=== PATIENT | female | born 1950 | race African-American/Black ===

== ENCOUNTER 2017-04-20 12:17 | Inpatient (IN) ==
[2017-04-20] MEDS ORDERED: cefTRIAXone 1,000 MG in SODIUM CHLORIDE 0.9% 100 ML IV STA (13:19)
[2017-04-20] MEDS ORDERED: NITROGLYCERIN 2% OINT 1 INCH/GM PACK TOP STA (13:19)
[2017-04-20] MEDS ORDERED: ONDANSETRON 4 MG/2 ML VIAL IV STA (13:19)
[2017-04-20] MEDS ORDERED: FUROSEMIDE 100 MG/10 ML VIAL IV STA (13:19)
[2017-04-20] MEDS ORDERED: MORPHINE 2 MG/1 ML SYRINGE IV STA (13:19)
[2017-04-20] MEDS ORDERED: LEVALBUTEROL 1.25 MG/3 ML NEB RESP TX STA (13:19)
[2017-04-20] MEDS ORDERED: ALBUTEROL 2.5 MG/3 ML NEB RESP TX SCH (13:30)
[2017-04-20] MEDS ORDERED: MORPHINE 2 MG/1 ML SYRINGE ONE (13:36)
[2017-04-20] MEDS ORDERED: NITROGLYCERIN 2% OINT 1 INCH/GM PACK TOP ONE (13:36)
[2017-04-20] MEDS ORDERED: FUROSEMIDE 40 MG/4 ML VIAL ONE (13:36)
[2017-04-20] MEDS ORDERED: ONDANSETRON 4 MG/2 ML VIAL ONE (13:36)
[2017-04-20] MEDS ORDERED: ALBUTEROL 2.5 MG/3 ML NEB RESP TX ONE (13:42)
[2017-04-20 13:53] LABS: Basophils % 0.3 % (0.0-0.8); Eosinophils # 0.1 10*3/uL (0.0-0.87); Eosinophils % 0.5 % (0.00-10.9); Hematocrit 43.3 VOL% (35.7-47.0); Hemoglobin 14.6 GM/DL (12.0-16.0); Immature Granulocytes % 0.4 %; Immature Granulocytes Absolute 0.05 #; Lymphocytes # 1.1 10*3/uL (1.4-4.0); Lymphocytes % 8.7 % (21.3-54.2); Mean Corpuscular HGB Conc 33.7 GM/DL (32-36); Mean Corpuscular Hemoglobin 33 PG (27-34); Mean Corpuscular Volume 97.5 FL (87-102); Mean Platelet Volume 10.4 FL (9.6-12.0); Monocytes # 0.6 10*3/uL (0.11-0.8); Monocytes % 4.5 % (1.7-12.7); Neutrophils # 10.7 10*3/uL (1.4-7.4); Neutrophils % 85.6 % (38.7-73.9); Platelet Count 199 T/CUMM (130-400); Red Blood Count 4.44 MC/CUMM (3.8-5.5); Red Cell Distribution Width 13.4 % (9.3-17.3); White Blood Count 12.5 T/CUMM (4-12)
[2017-04-20 14:01] LABS: INR 1.4; PT Patient Result 14.2 SECS
[2017-04-20] MEDS ORDERED: cefTRIAXone 1,000 MG VIAL ONE (14:16)
[2017-04-20 14:46] LABS: Albumin 3.8 G/DL (3.4-5.0); Bilirubin,Total 0.5 MG/DL (0.2-1.0); Calcium 9.4 MG/DL (8.5-10.1); Osmolality,Calculated 277.7 MOS/KG (273-304); Potassium 3.7 MMOL/L (3.5-5.1); Total Protein 7.8 G/DL (6.4-8.3)
[2017-04-20 14:49] LABS: Troponin I Only 0.085 NG/ML (0.00-0.045)
[2017-04-20 15:03] LABS: Apearance,Urine CLEAR (Clear); Bacteria,Urine Occasional /HPF (Few); Bilirubin,Urine Negative (Negative); Blood, Urine Negative (Negative); Glucose,Urine (UA) Negative (Negative); Ketones,Urine 5 mg/dL (Negative); Mucus,Urine Occasional /LPF (Occasional); Nitrite,Urine Negative (Negative); Protein,Urine 100 MG/DL; RBC,Urine 1 /HPF (0-4); Urine Color Yellow (Yellow); Urine Specific Gravity 1.015 (1.001-1.035); Urine Urobilinogen < 2.0 EU/DL (0.2-1.0); WBC,Urine 1 /HPF (0-6)
[2017-04-20] MEDS ORDERED: ONDANSETRON 4 MG/2 ML VIAL IV PRN (15:26)
[2017-04-20] MEDS ORDERED: MORPHINE 2 MG/1 ML SYRINGE IV PRN (15:26)
[2017-04-20] MEDS ORDERED: LEVALBUTEROL 1.25 MG/3 ML NEB RESP TX PRN (15:33)
[2017-04-20] MEDS ORDERED: ALBUTEROL 2.5 MG/3 ML NEB RESP TX PRN (15:47)
[2017-04-20] MEDS: ENOXAPARIN 40 MG/0.4 ML SYRINGE SUBCUT SCH (18:27)
[2017-04-20] MEDS: AZITHROMYCIN INJ 500 MG in SODIUM CHLORIDE 0.9% 250 ML IV SCH (18:29)
[2017-04-20] MEDS ORDERED: ALBUTEROL/IPRATROPIUM 3 ML NEB RESP TX SCH (19:00)
[2017-04-20] MEDS ORDERED: IPRATROPIUM 500 MCG/2.5 ML NEB RESP TX PRN (19:33)
[2017-04-20] MEDS: MONTELUKAST 10 MG TABLET PO SCH (20:43)
[2017-04-20] MEDS: BUDESONIDE/FORMOTEROL 160-4.5 INHALER 6 GM INH SCH (20:43)
[2017-04-21] MEDS: IPRATROPIUM 500 MCG/2.5 ML NEB RESP TX SCH ×4 (02:47→19:06)
[2017-04-21] MEDS: guaiFENesin/DM ER 600-30 MG TABLET PO PRN ×2 (04:56→21:08)
[2017-04-21 05:59] LABS: Basophils % 0.3 % (0.0-0.8); Eosinophils # 0.1 10*3/uL (0.0-0.87); Eosinophils % 0.5 % (0.00-10.9); Hemoglobin 13.7 GM/DL (12.0-16.0); Immature Granulocytes % 0.5 %; Immature Granulocytes Absolute 0.06 #; Lymphocytes # 1.4 10*3/uL (1.4-4.0); Lymphocytes % 10.5 % (21.3-54.2); Mean Corpuscular HGB Conc 33.4 GM/DL (32-36); Mean Corpuscular Hemoglobin 32 PG (27-34); Mean Corpuscular Volume 96.5 FL (87-102); Mean Platelet Volume 10.1 FL (9.6-12.0); Monocytes # 0.8 10*3/uL (0.11-0.8); Neutrophils # 10.5 10*3/uL (1.4-7.4); Neutrophils % 82.2 % (38.7-73.9); Platelet Count 205 T/CUMM (130-400); Red Blood Count 4.25 MC/CUMM (3.8-5.5); Red Cell Distribution Width 13.8 % (9.3-17.3); White Blood Count 12.8 T/CUMM (4-12)
[2017-04-21 06:28] LABS: Albumin 3.6 G/DL (3.4-5.0); Bilirubin,Total 0.6 MG/DL (0.2-1.0); Calcium 9.6 MG/DL (8.5-10.1); Osmolality,Calculated 284.3 MOS/KG (273-304); Potassium 3.8 MMOL/L (3.5-5.1); Total Protein 6.7 G/DL (6.4-8.3)
[2017-04-21] MEDS ORDERED: FAMOTIDINE 20 MG TABLET PO SCH (09:00)
[2017-04-21] MEDS ORDERED: PANTOPRAZOLE 40 MG TABLET PO SCH (09:00)
[2017-04-21] MEDS: hydroCHLOROthiazide 12.5 MG CAPSULE PO SCH (09:06)
[2017-04-21] MEDS: MONTELUKAST 10 MG TABLET PO SCH ×2 (09:07→21:08)
[2017-04-21] MEDS: DILTIAZEM CD 300 MG CAPSULE PO SCH (09:07)
[2017-04-21] MEDS: cefTRIAXone 1,000 MG in SYRINGE 1 EACH IV SCH (09:07)
[2017-04-21] MEDS: BUDESONIDE/FORMOTEROL 160-4.5 INHALER 6 GM INH SCH ×2 (09:11→21:08)
[2017-04-21] MEDS ORDERED: AMINOPHYLLINE 250 MG in SODIUM CHLORIDE 0.9% 100 ML IV ONE (12:00)
[2017-04-21 12:19] LABS: PT Patient Result 10.2 SECS
[2017-04-21] MEDS ORDERED: AMINOPHYLLINE 250 MG in SODIUM CHLORIDE 0.9% 240 ML IV SCH (16:30)
[2017-04-21] MEDS: POTASSIUM CHLORIDE 10 MEQ TABLET PO SCH (17:03)
[2017-04-21] MEDS ORDERED: IPRATROPIUM 500 MCG/2.5 ML NEB RESP TX SCH (19:00)
[2017-04-21] MEDS: ENOXAPARIN 40 MG/0.4 ML SYRINGE SUBCUT SCH ×2 (21:07→21:12)
[2017-04-21] MEDS: AZITHROMYCIN INJ 500 MG in SODIUM CHLORIDE 0.9% 250 ML IV SCH (21:07)
[2017-04-21] MEDS: PANTOPRAZOLE 40 MG TABLET PO SCH (21:08)
[2017-04-22] MEDS: IPRATROPIUM 500 MCG/2.5 ML NEB RESP TX SCH ×4 (00:39→19:47)
[2017-04-22 06:34] LABS: PT Patient Result 10.5 SECS
[2017-04-22] MEDS: DILTIAZEM CD 300 MG CAPSULE PO SCH (09:18)
[2017-04-22] MEDS: PANTOPRAZOLE 40 MG TABLET PO SCH ×2 (09:19→21:59)
[2017-04-22] MEDS: POTASSIUM CHLORIDE 10 MEQ TABLET PO SCH (09:19)
[2017-04-22] MEDS: cefTRIAXone 1,000 MG in SYRINGE 1 EACH IV SCH (09:19)
[2017-04-22] MEDS: hydroCHLOROthiazide 12.5 MG CAPSULE PO SCH (09:19)
[2017-04-22] MEDS: AZITHROMYCIN 250 MG TABLET PO SCH (09:20)
[2017-04-22] MEDS: MONTELUKAST 10 MG TABLET PO SCH ×2 (09:20→21:59)
[2017-04-22] MEDS: BUDESONIDE/FORMOTEROL 160-4.5 INHALER 6 GM INH SCH ×2 (09:26→21:59)
[2017-04-22] MEDS: guaiFENesin/DM ER 600-30 MG TABLET PO PRN ×2 (09:26→21:58)
[2017-04-22] MEDS ORDERED: THEOPHYLLINE ER 200 MG TABLET PO SCH (10:00)
[2017-04-22] MEDS: THEOPHYLLINE ER (24 HR) 400 MG CAPSULE PO SCH (17:41)
[2017-04-22] MEDS: ENOXAPARIN 40 MG/0.4 ML SYRINGE SUBCUT SCH (21:58)
[2017-04-23] MEDS: IPRATROPIUM 500 MCG/2.5 ML NEB RESP TX SCH ×4 (01:13→19:23)
[2017-04-23] MEDS: POTASSIUM CHLORIDE 10 MEQ TABLET PO SCH (09:20)
[2017-04-23] MEDS: hydroCHLOROthiazide 12.5 MG CAPSULE PO SCH (09:20)
[2017-04-23] MEDS: BUDESONIDE/FORMOTEROL 160-4.5 INHALER 6 GM INH SCH ×2 (09:21→21:29)
[2017-04-23] MEDS: MONTELUKAST 10 MG TABLET PO SCH ×2 (09:21→21:29)
[2017-04-23] MEDS: PANTOPRAZOLE 40 MG TABLET PO SCH ×2 (09:21→21:29)
[2017-04-23] MEDS: guaiFENesin/DM ER 600-30 MG TABLET PO PRN ×2 (09:22→21:29)
[2017-04-23] MEDS: AZITHROMYCIN 250 MG TABLET PO SCH (09:22)
[2017-04-23] MEDS: DILTIAZEM CD 300 MG CAPSULE PO SCH (09:27)
[2017-04-23] MEDS: cefTRIAXone 1,000 MG in SYRINGE 1 EACH IV SCH (09:28)
[2017-04-23] MEDS: methylPREDNISolone SOD SUC 40 MG/1 ML VIAL IV SCH ×2 (14:43→22:35)
[2017-04-23] MEDS: LEVOFLOXACIN INJ 750 MG in PREMIX 1 EACH IV SCH (14:54)
[2017-04-23] MEDS: CEFEPIME 2,000 MG in SYRINGE 1 EACH IV SCH ×2 (16:10→22:38)
[2017-04-23] MEDS: THEOPHYLLINE ER (24 HR) 400 MG CAPSULE PO SCH (16:21)
[2017-04-23] MEDS: ENOXAPARIN 40 MG/0.4 ML SYRINGE SUBCUT SCH (21:30)
[2017-04-24] MEDS: IPRATROPIUM 500 MCG/2.5 ML NEB RESP TX SCH ×4 (00:13→20:34)
[2017-04-24] MEDS: methylPREDNISolone SOD SUC 40 MG/1 ML VIAL IV SCH ×3 (07:13→21:39)
[2017-04-24] MEDS: CEFEPIME 2,000 MG in SYRINGE 1 EACH IV SCH ×3 (07:15→21:40)
[2017-04-24] MEDS: DILTIAZEM CD 300 MG CAPSULE PO SCH (10:04)
[2017-04-24] MEDS: hydroCHLOROthiazide 12.5 MG CAPSULE PO SCH (10:05)
[2017-04-24] MEDS: PANTOPRAZOLE 40 MG TABLET PO SCH ×2 (10:05→21:46)
[2017-04-24] MEDS: POTASSIUM CHLORIDE 10 MEQ TABLET PO SCH (10:06)
[2017-04-24] MEDS: BUDESONIDE/FORMOTEROL 160-4.5 INHALER 6 GM INH SCH ×2 (10:06→21:46)
[2017-04-24] MEDS: MONTELUKAST 10 MG TABLET PO SCH ×2 (10:06→21:39)
[2017-04-24] MEDS: LEVOFLOXACIN INJ 750 MG in PREMIX 1 EACH IV SCH (15:29)
[2017-04-24] MEDS: THEOPHYLLINE ER (24 HR) 400 MG CAPSULE PO SCH (18:32)
[2017-04-24] MEDS: ENOXAPARIN 40 MG/0.4 ML SYRINGE SUBCUT SCH (21:39)
[2017-04-25] MEDS: IPRATROPIUM 500 MCG/2.5 ML NEB RESP TX SCH ×4 (01:01→20:01)
[2017-04-25] MEDS: methylPREDNISolone SOD SUC 40 MG/1 ML VIAL IV SCH ×3 (05:33→21:43)
[2017-04-25] MEDS: CEFEPIME 2,000 MG in SYRINGE 1 EACH IV SCH ×3 (05:35→21:51)
[2017-04-25] MEDS: DILTIAZEM CD 300 MG CAPSULE PO SCH (10:20)
[2017-04-25] MEDS: hydroCHLOROthiazide 12.5 MG CAPSULE PO SCH (10:22)
[2017-04-25] MEDS: POTASSIUM CHLORIDE 10 MEQ TABLET PO SCH (10:23)
[2017-04-25] MEDS: guaiFENesin/DM ER 600-30 MG TABLET PO PRN (10:23)
[2017-04-25] MEDS: MONTELUKAST 10 MG TABLET PO SCH ×2 (10:23→21:43)
[2017-04-25] MEDS: PANTOPRAZOLE 40 MG TABLET PO SCH ×2 (10:23→21:43)
[2017-04-25] MEDS: BUDESONIDE/FORMOTEROL 160-4.5 INHALER 6 GM INH SCH ×2 (10:24→21:49)
[2017-04-25] MEDS: LEVOFLOXACIN INJ 750 MG in PREMIX 1 EACH IV SCH (16:20)
[2017-04-25] MEDS: THEOPHYLLINE ER (24 HR) 400 MG CAPSULE PO SCH (18:04)
[2017-04-25] MEDS: ENOXAPARIN 40 MG/0.4 ML SYRINGE SUBCUT SCH (21:42)
[2017-04-26] MEDS: IPRATROPIUM 500 MCG/2.5 ML NEB RESP TX SCH ×4 (00:45→19:12)
[2017-04-26] MEDS: methylPREDNISolone SOD SUC 40 MG/1 ML VIAL IV SCH ×3 (05:30→23:26)
[2017-04-26] MEDS: CEFEPIME 2,000 MG in SYRINGE 1 EACH IV SCH ×3 (05:32→23:16)
[2017-04-26] MEDS ORDERED: amLODIPine 5 MG TABLET PO SCH (09:00)
[2017-04-26] MEDS: POTASSIUM CHLORIDE 10 MEQ TABLET PO SCH (09:35)
[2017-04-26] MEDS: DILTIAZEM CD 300 MG CAPSULE PO SCH (09:36)
[2017-04-26] MEDS: guaiFENesin/DM ER 600-30 MG TABLET PO PRN (09:39)
[2017-04-26] MEDS: MONTELUKAST 10 MG TABLET PO SCH ×2 (09:40→20:43)
[2017-04-26] MEDS: PANTOPRAZOLE 40 MG TABLET PO SCH ×2 (09:40→20:43)
[2017-04-26] MEDS: BUDESONIDE/FORMOTEROL 160-4.5 INHALER 6 GM INH SCH ×2 (09:41→20:43)
[2017-04-26] MEDS: amLODIPine 10 MG TABLET PO SCH (09:50)
[2017-04-26] MEDS: LEVOFLOXACIN INJ 750 MG in PREMIX 1 EACH IV SCH (15:09)
[2017-04-26] MEDS: LOSARTAN 50 MG TABLET PO SCH (18:00)
[2017-04-26] MEDS: ALLOPURINOL 100 MG TABLET PO SCH ×2 (18:01→20:43)
[2017-04-26] MEDS: THEOPHYLLINE ER (24 HR) 400 MG CAPSULE PO SCH (18:01)
[2017-04-26] MEDS: ENOXAPARIN 40 MG/0.4 ML SYRINGE SUBCUT SCH (20:43)
[2017-04-27] MEDS: IPRATROPIUM 500 MCG/2.5 ML NEB RESP TX SCH ×4 (00:25→18:52)
[2017-04-27] MEDS: methylPREDNISolone SOD SUC 40 MG/1 ML VIAL IV SCH ×2 (06:38→16:56)
[2017-04-27] MEDS: CEFEPIME 2,000 MG in SYRINGE 1 EACH IV SCH ×2 (06:44→16:59)
[2017-04-27] MEDS: LOSARTAN 50 MG TABLET PO SCH (08:45)
[2017-04-27] MEDS: DILTIAZEM CD 300 MG CAPSULE PO SCH (08:45)
[2017-04-27] MEDS: BUDESONIDE/FORMOTEROL 160-4.5 INHALER 6 GM INH SCH ×2 (08:46→21:27)
[2017-04-27] MEDS: amLODIPine 10 MG TABLET PO SCH (08:46)
[2017-04-27] MEDS: ALLOPURINOL 100 MG TABLET PO SCH ×3 (08:46→21:27)
[2017-04-27] MEDS: PANTOPRAZOLE 40 MG TABLET PO SCH ×2 (08:46→21:28)
[2017-04-27] MEDS: MONTELUKAST 10 MG TABLET PO SCH ×2 (08:46→21:27)
[2017-04-27] MEDS: guaiFENesin/DM ER 600-30 MG TABLET PO PRN (15:33)
[2017-04-27] MEDS: THEOPHYLLINE ER (24 HR) 400 MG CAPSULE PO SCH (16:55)
[2017-04-27] MEDS: ENOXAPARIN 40 MG/0.4 ML SYRINGE SUBCUT SCH (21:28)
[2017-04-27] MEDS: LEVOFLOXACIN INJ 750 MG in PREMIX 1 EACH IV SCH (21:30)
[2017-04-28] MEDS: IPRATROPIUM 500 MCG/2.5 ML NEB RESP TX SCH ×4 (00:17→18:56)
[2017-04-28] MEDS: methylPREDNISolone SOD SUC 40 MG/1 ML VIAL IV SCH ×3 (01:30→16:36)
[2017-04-28] MEDS: CEFEPIME 2,000 MG in SYRINGE 1 EACH IV SCH ×3 (01:32→16:33)
[2017-04-28 06:23] LABS: Basophils % 0.1 % (0.0-0.8); Hematocrit 36.8 VOL% (35.7-47.0); Hemoglobin 12.3 GM/DL (12.0-16.0); Immature Granulocytes % 1.2 %; Immature Granulocytes Absolute 0.16 #; Lymphocytes # 0.4 10*3/uL (1.4-4.0); Lymphocytes % 2.7 % (21.3-54.2); Mean Corpuscular HGB Conc 33.4 GM/DL (32-36); Mean Corpuscular Hemoglobin 32 PG (27-34); Mean Corpuscular Volume 96.8 FL (87-102); Mean Platelet Volume 10.9 FL (9.6-12.0); Monocytes # 0.2 10*3/uL (0.11-0.8); Monocytes % 1.3 % (1.7-12.7); Neutrophils # 12.8 10*3/uL (1.4-7.4); Neutrophils % 94.7 % (38.7-73.9); Platelet Count 195 T/CUMM (130-400); Red Cell Distribution Width 13.3 % (9.3-17.3); White Blood Count 13.5 T/CUMM (4-12)
[2017-04-28 06:49] LABS: Band Neutrophils 1 % (0-10); Calcium 9.5 MG/DL (8.5-10.1); Lymphocytes 3 % (20-55); Osmolality,Calculated 290.7 MOS/KG (273-304); Potassium 4.1 MMOL/L (3.5-5.1); Segmented Neutrophils 94 % (50-85); Total Cells Counted 100
[2017-04-28 06:50] LABS: Hypersegmented Neutrophil SLIGHT; Hypochromasia 1+; Platelet Estimate Adequate
[2017-04-28] MEDS: DILTIAZEM CD 300 MG CAPSULE PO SCH (08:14)
[2017-04-28] MEDS: LOSARTAN 50 MG TABLET PO SCH (08:14)
[2017-04-28] MEDS: PANTOPRAZOLE 40 MG TABLET PO SCH ×2 (08:15→21:47)
[2017-04-28] MEDS: amLODIPine 10 MG TABLET PO SCH (08:15)
[2017-04-28] MEDS: ALLOPURINOL 100 MG TABLET PO SCH ×3 (08:16→21:48)
[2017-04-28] MEDS: BUDESONIDE/FORMOTEROL 160-4.5 INHALER 6 GM INH SCH ×2 (08:16→21:48)
[2017-04-28] MEDS: MONTELUKAST 10 MG TABLET PO SCH ×2 (08:16→21:48)
[2017-04-28] MEDS: guaiFENesin/DM ER 600-30 MG TABLET PO PRN (08:17)
[2017-04-28] MEDS: MUPIROCIN 2% OINT 22 GM TUBE TOP SCH ×2 (12:43→21:56)
[2017-04-28] MEDS: AZELASTINE NASAL 137 MCG/SPRAY 30 ML BOTTLE BOTH NARES SCH ×2 (12:43→21:56)
[2017-04-28] MEDS ORDERED: THEOPHYLLINE ER (24 HR) 300 MG CAPSULE PO SCH (17:00)
[2017-04-28] MEDS: LEVOFLOXACIN INJ 750 MG in PREMIX 1 EACH IV SCH (21:50)
[2017-04-28] MEDS: ENOXAPARIN 40 MG/0.4 ML SYRINGE SUBCUT SCH (21:59)
[2017-04-29] MEDS: IPRATROPIUM 500 MCG/2.5 ML NEB RESP TX SCH ×2 (00:03→07:50)
[2017-04-29] MEDS: methylPREDNISolone SOD SUC 40 MG/1 ML VIAL IV SCH ×2 (01:30→09:54)
[2017-04-29] MEDS: CEFEPIME 2,000 MG in SYRINGE 1 EACH IV SCH ×2 (01:33→09:54)
[2017-04-29] MEDS: PANTOPRAZOLE 40 MG TABLET PO SCH (09:55)
[2017-04-29] MEDS: ALLOPURINOL 100 MG TABLET PO SCH (09:55)
[2017-04-29] MEDS: AZELASTINE NASAL 137 MCG/SPRAY 30 ML BOTTLE BOTH NARES SCH (09:55)
[2017-04-29] MEDS: amLODIPine 10 MG TABLET PO SCH (09:55)
[2017-04-29] MEDS: MONTELUKAST 10 MG TABLET PO SCH (09:55)
[2017-04-29] MEDS: MUPIROCIN 2% OINT 22 GM TUBE TOP SCH (09:55)
[2017-04-29] MEDS: DILTIAZEM CD 300 MG CAPSULE PO SCH (09:55)
[2017-04-29] MEDS: BUDESONIDE/FORMOTEROL 160-4.5 INHALER 6 GM INH SCH (09:56)
[2017-04-29 12:01] VITALS: BP 156/68
== END 2017-04-29 12:32 | DRG 178 ==
LOC: EDUNIT# → EDBD → N.ED 12:17 → SUATTDRO 15:03 → N.EDINP 15:03 → N.2E 17:07
PROVIDERS: ADMIT Internal Medicine; ATTEND Internal Medicine

== ENCOUNTER 2017-07-08 15:59 | Inpatient (IN) ==
[2017-07-08] MEDS ORDERED: LEVALBUTEROL 1.25 MG/3 ML NEB RESP TX STA ×2 (17:02→19:33)
[2017-07-08 17:46] LABS: Basophils % 0.3 % (0.0-0.8); Eosinophils # 0.1 10*3/uL (0.0-0.87); Hematocrit 43.4 VOL% (35.7-47.0); Hemoglobin 14.1 GM/DL (12.0-16.0); Immature Granulocytes % 0.7 %; Immature Granulocytes Absolute 0.06 #; Lymphocytes # 1.6 10*3/uL (1.4-4.0); Lymphocytes % 17.7 % (21.3-54.2); Mean Corpuscular HGB Conc 32.5 GM/DL (32-36); Mean Corpuscular Hemoglobin 33 PG (27-34); Mean Corpuscular Volume 100.2 FL (87-102); Mean Platelet Volume 9.8 FL (9.6-12.0); Monocytes # 0.5 10*3/uL (0.11-0.8); Monocytes % 6.1 % (1.7-12.7); Neutrophils # 6.6 10*3/uL (1.4-7.4); Neutrophils % 74.2 % (38.7-73.9); Platelet Count 190 T/CUMM (130-400); Red Blood Count 4.33 MC/CUMM (3.8-5.5); Red Cell Distribution Width 14.5 % (9.3-17.3); White Blood Count 8.9 T/CUMM (4-12)
[2017-07-08 17:54] LABS: INR 0.9; PT Patient Result 9.8 SECS; Partial Thromboplastin Time 24.3 SECS (0-40)
[2017-07-08 18:10] LABS: Calcium 9.7 MG/DL (8.5-10.1); Osmolality,Calculated 280.5 MOS/KG (273-304)
[2017-07-08] MEDS ORDERED: methylPREDNISolone SOD SUC 125 MG/2 ML VIAL IV STA (19:33)
[2017-07-08] MEDS ORDERED: methylPREDNISolone SOD SUC 125 MG/2 ML VIAL ONE (19:49)
[2017-07-08] MEDS ORDERED: guaiFENesin/DM ER 600-30 MG TABLET PO PRN (20:45)
[2017-07-08] MEDS ORDERED: ONDANSETRON 4 MG/2 ML VIAL IV PRN (20:45)
[2017-07-08] MEDS: SODIUM CHLORIDE 0.9% 1,000 ML IV SCH (21:39)
[2017-07-08] MEDS: DOCUSATE SODIUM 100 MG CAPSULE PO SCH (21:44)
[2017-07-08] MEDS: ENOXAPARIN 40 MG/0.4 ML SYRINGE SUBCUT SCH (21:44)
[2017-07-09] MEDS: LEVALBUTEROL 1.25 MG/3 ML NEB RESP TX SCH ×7 (00:11→23:52)
[2017-07-09] MEDS: methylPREDNISolone SOD SUC 125 MG/2 ML VIAL IV SCH ×3 (02:25→17:59)
[2017-07-09] MEDS: PANTOPRAZOLE 40 MG TABLET PO SCH (08:33)
[2017-07-09] MEDS: DOCUSATE SODIUM 100 MG CAPSULE PO SCH ×2 (08:33→21:36)
[2017-07-09] MEDS ORDERED: NON-FORMULARY MEDICATION (Albuterol Sulfate [Ventolin Hfa] 2 PUFF) INH PRN (09:20)
[2017-07-09] MEDS: BUDESONIDE/FORMOTEROL 160-4.5 INHALER 6 GM INH SCH ×2 (11:06→21:35)
[2017-07-09] MEDS: DILTIAZEM CD 300 MG CAPSULE PO SCH (11:06)
[2017-07-09] MEDS: amLODIPine 10 MG TABLET PO SCH (11:06)
[2017-07-09] MEDS: SODIUM CHLORIDE 0.9% 1,000 ML IV SCH ×2 (11:07→23:19)
[2017-07-09] MEDS: cefTRIAXone 1,000 MG in SYRINGE 1 EACH IV SCH (12:25)
[2017-07-09] MEDS: THEOPHYLLINE ER (24 HR) 300 MG CAPSULE PO SCH (16:03)
[2017-07-09] MEDS: ACETAMINOPHEN 325 MG TABLET PO PRN (16:53)
[2017-07-09] MEDS: MONTELUKAST 10 MG TABLET PO SCH (21:35)
[2017-07-09] MEDS: ENOXAPARIN 40 MG/0.4 ML SYRINGE SUBCUT SCH (21:36)
[2017-07-10] MEDS: methylPREDNISolone SOD SUC 125 MG/2 ML VIAL IV SCH ×3 (03:33→17:59)
[2017-07-10] MEDS: LEVALBUTEROL 1.25 MG/3 ML NEB RESP TX SCH ×6 (04:17→23:48)
[2017-07-10 06:51] LABS: Hematocrit 37.2 VOL% (35.7-47.0); Hemoglobin 12.1 GM/DL (12.0-16.0); Immature Granulocytes Absolute 0.13 #; Lymphocytes # 0.6 10*3/uL (1.4-4.0); Lymphocytes % 4.4 % (21.3-54.2); Mean Corpuscular HGB Conc 32.5 GM/DL (32-36); Mean Corpuscular Hemoglobin 33 PG (27-34); Mean Corpuscular Volume 100.8 FL (87-102); Mean Platelet Volume 10.3 FL (9.6-12.0); Monocytes # 0.3 10*3/uL (0.11-0.8); Monocytes % 2.4 % (1.7-12.7); Neutrophils # 12.3 10*3/uL (1.4-7.4); Neutrophils % 92.2 % (38.7-73.9); Platelet Count 178 T/CUMM (130-400); Red Blood Count 3.69 MC/CUMM (3.8-5.5); White Blood Count 13.3 T/CUMM (4-12)
[2017-07-10 07:17] LABS: Hypochromasia Slight; Lymphocytes 2 % (20-55); Microcytosis Slight; Platelet Estimate Adequate; Segmented Neutrophils 97 % (50-85); Total Cells Counted 100
[2017-07-10 07:23] LABS: Calcium 9.1 MG/DL (8.5-10.1); Osmolality,Calculated 290.1 MOS/KG (273-304); Potassium 3.5 MMOL/L (3.5-5.1)
[2017-07-10] MEDS: cefTRIAXone 1,000 MG in SYRINGE 1 EACH IV SCH (08:20)
[2017-07-10] MEDS: DILTIAZEM CD 300 MG CAPSULE PO SCH (08:22)
[2017-07-10] MEDS: DOCUSATE SODIUM 100 MG CAPSULE PO SCH ×2 (08:22→20:49)
[2017-07-10] MEDS: amLODIPine 10 MG TABLET PO SCH (08:23)
[2017-07-10] MEDS: MONTELUKAST 10 MG TABLET PO SCH ×2 (08:23→20:48)
[2017-07-10] MEDS: PANTOPRAZOLE 40 MG TABLET PO SCH (08:23)
[2017-07-10] MEDS: BUDESONIDE/FORMOTEROL 160-4.5 INHALER 6 GM INH SCH ×2 (08:23→20:47)
[2017-07-10] MEDS ORDERED: MONTELUKAST 10 MG TABLET PO SCH (09:00)
[2017-07-10] MEDS: SODIUM CHLORIDE 0.9% 1,000 ML IV SCH (13:12)
[2017-07-10] MEDS: THEOPHYLLINE ER (24 HR) 300 MG CAPSULE PO SCH (15:59)
[2017-07-10] MEDS: ACETAMINOPHEN 325 MG TABLET PO PRN (16:00)
[2017-07-10] MEDS ORDERED: ALUMINUM/MAGNES/SIMETH MAX STR 30 ML UDCUP PO PRN (17:31)
[2017-07-10] MEDS: ENOXAPARIN 40 MG/0.4 ML SYRINGE SUBCUT SCH (20:48)
[2017-07-11] MEDS: methylPREDNISolone SOD SUC 125 MG/2 ML VIAL IV SCH ×3 (03:01→18:11)
[2017-07-11] MEDS: LEVALBUTEROL 1.25 MG/3 ML NEB RESP TX SCH ×6 (03:30→23:45)
[2017-07-11 05:41] LABS: Basophils % 0.1 % (0.0-0.8); Hematocrit 36.5 VOL% (35.7-47.0); Immature Granulocytes % 1.3 %; Immature Granulocytes Absolute 0.22 #; Lymphocytes # 0.3 10*3/uL (1.4-4.0); Lymphocytes % 1.8 % (21.3-54.2); Mean Corpuscular HGB Conc 32.9 GM/DL (32-36); Mean Corpuscular Hemoglobin 33 PG (27-34); Mean Platelet Volume 10.1 FL (9.6-12.0); Monocytes # 0.3 10*3/uL (0.11-0.8); Monocytes % 1.7 % (1.7-12.7); Neutrophils # 15.6 10*3/uL (1.4-7.4); Neutrophils % 95.1 % (38.7-73.9); Platelet Count 197 T/CUMM (130-400); Red Blood Count 3.65 MC/CUMM (3.8-5.5); Red Cell Distribution Width 15.3 % (9.3-17.3); White Blood Count 16.4 T/CUMM (4-12)
[2017-07-11 06:14] LABS: Calcium 9.6 MG/DL (8.5-10.1); Potassium 3.9 MMOL/L (3.5-5.1)
[2017-07-11 07:09] LABS: Hypochromasia 1+; Lymphocytes 5 % (20-55); Segmented Neutrophils 94 % (50-85); Total Cells Counted 100
[2017-07-11 07:10] LABS: Microcytosis Slight
[2017-07-11 07:11] LABS: Platelet Estimate Adequate
[2017-07-11] MEDS: cefTRIAXone 1,000 MG in SYRINGE 1 EACH IV SCH (08:25)
[2017-07-11] MEDS: DILTIAZEM CD 300 MG CAPSULE PO SCH (09:13)
[2017-07-11] MEDS: MONTELUKAST 10 MG TABLET PO SCH ×2 (09:13→20:50)
[2017-07-11] MEDS: DOCUSATE SODIUM 100 MG CAPSULE PO SCH ×2 (09:14→20:50)
[2017-07-11] MEDS: PANTOPRAZOLE 40 MG TABLET PO SCH (09:15)
[2017-07-11] MEDS: amLODIPine 10 MG TABLET PO SCH (09:15)
[2017-07-11] MEDS: BUDESONIDE/FORMOTEROL 160-4.5 INHALER 6 GM INH SCH ×2 (10:02→20:51)
[2017-07-11] MEDS ORDERED: LEVOFLOXACIN INJ 750 MG in PREMIX 1 EACH IV SCH (12:00)
[2017-07-11] MEDS: SODIUM CHLORIDE 0.9% 1,000 ML IV SCH (12:22)
[2017-07-11] MEDS: THEOPHYLLINE ER (24 HR) 300 MG CAPSULE PO SCH (16:13)
[2017-07-11] MEDS: ENOXAPARIN 40 MG/0.4 ML SYRINGE SUBCUT SCH (20:50)
[2017-07-12] MEDS: methylPREDNISolone SOD SUC 125 MG/2 ML VIAL IV SCH (03:30)
[2017-07-12] MEDS: LEVALBUTEROL 1.25 MG/3 ML NEB RESP TX SCH ×5 (03:52→20:30)
[2017-07-12 04:59] LABS: Basophils % 0.1 % (0.0-0.8); Hematocrit 37.9 VOL% (35.7-47.0); Hemoglobin 12.5 GM/DL (12.0-16.0); Immature Granulocytes % 1.4 %; Immature Granulocytes Absolute 0.17 #; Lymphocytes # 0.3 10*3/uL (1.4-4.0); Lymphocytes % 2.3 % (21.3-54.2); Mean Corpuscular Hemoglobin 33 PG (27-34); Mean Corpuscular Volume 99.7 FL (87-102); Mean Platelet Volume 10.2 FL (9.6-12.0); Monocytes # 0.4 10*3/uL (0.11-0.8); Monocytes % 2.9 % (1.7-12.7); Neutrophils # 11.3 10*3/uL (1.4-7.4); Neutrophils % 93.3 % (38.7-73.9); Platelet Count 208 T/CUMM (130-400); Red Cell Distribution Width 15.3 % (9.3-17.3); White Blood Count 12.1 T/CUMM (4-12)
[2017-07-12 05:43] LABS: Calcium 9.6 MG/DL (8.5-10.1); Osmolality,Calculated 292.1 MOS/KG (273-304); Potassium 3.9 MMOL/L (3.5-5.1)
[2017-07-12 06:07] LABS: Lymphocytes 3 % (20-55); Segmented Neutrophils 94 % (50-85); Total Cells Counted 100
[2017-07-12 06:08] LABS: Hypochromasia 1+; Microcytosis Slight; Platelet Estimate Normal
[2017-07-12] MEDS: DOCUSATE SODIUM 100 MG CAPSULE PO SCH ×2 (10:41→21:38)
[2017-07-12] MEDS: DILTIAZEM CD 300 MG CAPSULE PO SCH (10:41)
[2017-07-12] MEDS: PANTOPRAZOLE 40 MG TABLET PO SCH (10:42)
[2017-07-12] MEDS: amLODIPine 10 MG TABLET PO SCH (10:42)
[2017-07-12] MEDS: cefTRIAXone 1,000 MG in SYRINGE 1 EACH IV SCH (10:43)
[2017-07-12] MEDS: MONTELUKAST 10 MG TABLET PO SCH ×2 (10:44→21:39)
[2017-07-12] MEDS: BUDESONIDE/FORMOTEROL 160-4.5 INHALER 6 GM INH SCH ×2 (10:44→21:39)
[2017-07-12] MEDS: methylPREDNISolone SOD SUC 40 MG/1 ML VIAL IV SCH ×2 (10:46→18:24)
[2017-07-12] MEDS: SULFAMETHOX/TRIMETHOPRIM 800-160 MG TABLET PO SCH ×2 (13:34→21:38)
[2017-07-12] MEDS: THEOPHYLLINE ER (24 HR) 300 MG CAPSULE PO SCH (18:24)
[2017-07-12] MEDS: ENOXAPARIN 40 MG/0.4 ML SYRINGE SUBCUT SCH (21:39)
[2017-07-13] MEDS: LEVALBUTEROL 1.25 MG/3 ML NEB RESP TX SCH ×7 (00:05→23:55)
[2017-07-13] MEDS: methylPREDNISolone SOD SUC 40 MG/1 ML VIAL IV SCH ×3 (03:01→21:45)
[2017-07-13] MEDS: BUDESONIDE/FORMOTEROL 160-4.5 INHALER 6 GM INH SCH ×2 (10:20→21:48)
[2017-07-13] MEDS: DILTIAZEM CD 300 MG CAPSULE PO SCH (10:21)
[2017-07-13] MEDS: amLODIPine 10 MG TABLET PO SCH (10:21)
[2017-07-13] MEDS: DOCUSATE SODIUM 100 MG CAPSULE PO SCH ×2 (10:21→21:47)
[2017-07-13] MEDS: PANTOPRAZOLE 40 MG TABLET PO SCH (10:21)
[2017-07-13] MEDS: SULFAMETHOX/TRIMETHOPRIM 800-160 MG TABLET PO SCH ×2 (10:21→21:48)
[2017-07-13] MEDS: cefTRIAXone 1,000 MG in SYRINGE 1 EACH IV SCH (10:22)
[2017-07-13] MEDS: LISINOPRIL 5 MG TABLET PO SCH ×2 (10:22→21:46)
[2017-07-13] MEDS: MONTELUKAST 10 MG TABLET PO SCH ×2 (10:22→21:47)
[2017-07-13] MEDS ORDERED: hydrALAZINE 20 MG/1 ML VIAL IV PRN (13:55)
[2017-07-13] MEDS ORDERED: ZALEPLON 5 MG CAPSULE PO PRN (13:56)
[2017-07-13 15:27] LABS: ABG Base Excess 0.9 MMOL/L (-2.5-2.5); ABG HCO3 25.1 MMOL/L (20-26); ABG Oxygen Saturation 95.2 % (95-100); ABG PCO2 39.8 MM HG (35-48); ABG PH 7.414 (7.35-7.45); ABG PO2 73.3 MM HG (80-95); Allen Test Positive
[2017-07-13 15:44] LABS: Calcium 10.3 MG/DL (8.5-10.1); Osmolality,Calculated 288.5 MOS/KG (273-304); Potassium 4.2 MMOL/L (3.5-5.1)
[2017-07-13] MEDS: CLORAZEPATE 3.75 MG TABLET PO SCH ×2 (15:56→21:47)
[2017-07-13] MEDS: THEOPHYLLINE ER (24 HR) 300 MG CAPSULE PO SCH (17:17)
[2017-07-13] MEDS: ENOXAPARIN 40 MG/0.4 ML SYRINGE SUBCUT SCH (21:46)
[2017-07-14] MEDS: LEVALBUTEROL 1.25 MG/3 ML NEB RESP TX SCH ×5 (04:06→19:25)
[2017-07-14] MEDS: methylPREDNISolone SOD SUC 40 MG/1 ML VIAL IV SCH ×3 (05:39→21:35)
[2017-07-14] MEDS: MONTELUKAST 10 MG TABLET PO SCH ×2 (08:08→21:34)
[2017-07-14] MEDS: CLORAZEPATE 3.75 MG TABLET PO SCH ×3 (08:08→21:36)
[2017-07-14] MEDS: PANTOPRAZOLE 40 MG TABLET PO SCH (08:08)
[2017-07-14] MEDS: LISINOPRIL 5 MG TABLET PO SCH ×2 (08:08→21:34)
[2017-07-14] MEDS: amLODIPine 10 MG TABLET PO SCH (08:08)
[2017-07-14] MEDS: SULFAMETHOX/TRIMETHOPRIM 800-160 MG TABLET PO SCH ×2 (08:09→21:35)
[2017-07-14] MEDS: DILTIAZEM CD 300 MG CAPSULE PO SCH (08:09)
[2017-07-14] MEDS: DOCUSATE SODIUM 100 MG CAPSULE PO SCH ×2 (08:09→21:35)
[2017-07-14] MEDS: BUDESONIDE/FORMOTEROL 160-4.5 INHALER 6 GM INH SCH ×2 (08:09→21:36)
[2017-07-14] MEDS: cefTRIAXone 1,000 MG in SYRINGE 1 EACH IV SCH (08:14)
[2017-07-14] MEDS: ALBUTEROL 0.4 MG/ML 30 ML/BOTTLE PO SCH ×3 (12:05→21:36)
[2017-07-14] MEDS: THEOPHYLLINE ER (24 HR) 300 MG CAPSULE PO SCH (17:17)
[2017-07-14] MEDS: ENOXAPARIN 40 MG/0.4 ML SYRINGE SUBCUT SCH (21:35)
[2017-07-15] MEDS: LEVALBUTEROL 1.25 MG/3 ML NEB RESP TX SCH ×7 (00:30→23:58)
[2017-07-15 04:19] LABS: ABG Base Excess -0.4 MMOL/L (-2.5-2.5); ABG Oxygen Saturation 90.5 % (95-100); ABG PCO2 42.3 MM HG (35-48); ABG PH 7.378 (7.35-7.45); ABG PO2 61.7 MM HG (80-95); ABG TCO2 21.9 MMOL/L (23-27); Allen Test Positive
[2017-07-15 04:56] LABS: Basophils % 0.1 % (0.0-0.8); Hematocrit 40.4 VOL% (35.7-47.0); Hemoglobin 13.1 GM/DL (12.0-16.0); Immature Granulocytes % 0.8 %; Immature Granulocytes Absolute 0.13 #; Lymphocytes # 0.4 10*3/uL (1.4-4.0); Lymphocytes % 2.1 % (21.3-54.2); Mean Corpuscular HGB Conc 32.4 GM/DL (32-36); Mean Corpuscular Hemoglobin 33 PG (27-34); Mean Corpuscular Volume 100.5 FL (87-102); Mean Platelet Volume 10.2 FL (9.6-12.0); Monocytes # 0.4 10*3/uL (0.11-0.8); Monocytes % 2.2 % (1.7-12.7); NRBC # 0.02 10*3/uL; Neutrophils # 15.6 10*3/uL (1.4-7.4); Neutrophils % 94.8 % (38.7-73.9); Platelet Count 209 T/CUMM (130-400); Red Blood Count 4.02 MC/CUMM (3.8-5.5); White Blood Count 16.5 T/CUMM (4-12)
[2017-07-15 05:23] LABS: Giant Platelets Few; Hypochromasia 1+; Lymphocytes 5 % (20-55); Microcytosis Slight; Platelet Estimate Adequate; Segmented Neutrophils 95 % (50-85); Total Cells Counted 100
[2017-07-15 05:24] LABS: Calcium 10.3 MG/DL (8.5-10.1); Potassium 4.5 MMOL/L (3.5-5.1)
[2017-07-15] MEDS: ALBUTEROL 0.4 MG/ML 30 ML/BOTTLE PO SCH ×3 (05:28→21:04)
[2017-07-15] MEDS: methylPREDNISolone SOD SUC 40 MG/1 ML VIAL IV SCH ×3 (05:28→20:53)
[2017-07-15] MEDS: PANTOPRAZOLE 40 MG TABLET PO SCH (09:30)
[2017-07-15] MEDS: DOCUSATE SODIUM 100 MG CAPSULE PO SCH ×2 (09:30→20:52)
[2017-07-15] MEDS: CLORAZEPATE 3.75 MG TABLET PO SCH ×3 (09:30→20:52)
[2017-07-15] MEDS: cefTRIAXone 1,000 MG in SYRINGE 1 EACH IV SCH (09:30)
[2017-07-15] MEDS: MONTELUKAST 10 MG TABLET PO SCH ×2 (09:30→20:52)
[2017-07-15] MEDS: BUDESONIDE/FORMOTEROL 160-4.5 INHALER 6 GM INH SCH ×2 (09:30→20:53)
[2017-07-15] MEDS: SULFAMETHOX/TRIMETHOPRIM 800-160 MG TABLET PO SCH ×2 (09:30→20:52)
[2017-07-15] MEDS: amLODIPine 10 MG TABLET PO SCH (09:30)
[2017-07-15] MEDS: DILTIAZEM CD 300 MG CAPSULE PO SCH (09:30)
[2017-07-15] MEDS: SODIUM CHLORIDE 0.9% 1,000 ML IV SCH (12:35)
[2017-07-15 15:20] LABS: Apearance,Urine CLOUDY (Clear); Bilirubin,Urine Negative (Negative); Blood, Urine Large mg/dL (Negative); Glucose,Urine (UA) 50 mg/dL (Negative); Ketones,Urine 5 mg/dL (Negative); Mucus,Urine Moderate /LPF (Occasional); Nitrite,Urine Negative (Negative); Protein,Urine 100 MG/DL; RBC,Urine 10747 /HPF (0-4); Urine Color Red (Yellow); Urine Specific Gravity 1.018 (1.001-1.035); Urine Urobilinogen < 2.0 EU/DL (0.2-1.0); WBC,Urine 1778 /HPF (0-6)
[2017-07-15 15:29] LABS: Creatinine,Urine Random 121 MG/DL; Total Protein,Urine Random 226 MG/DL; Urea Nitrogen, Urine Random 442 MG/DL
[2017-07-15] MEDS: THEOPHYLLINE ER (24 HR) 300 MG CAPSULE PO SCH (17:10)
[2017-07-15] MEDS: miSOPROStol 200 MCG TABLET PO SCH ×2 (17:10→20:52)
[2017-07-15] MEDS: ENOXAPARIN 40 MG/0.4 ML SYRINGE SUBCUT SCH (20:53)
[2017-07-16] MEDS: LEVALBUTEROL 1.25 MG/3 ML NEB RESP TX SCH ×6 (03:01→23:13)
[2017-07-16 03:25] LABS: ABG Base Excess -2.6 MMOL/L (-2.5-2.5); ABG HCO3 22.1 MMOL/L (20-26); ABG Oxygen Saturation 90.7 % (95-100); ABG PCO2 40.6 MM HG (35-48); ABG PH 7.357 (7.35-7.45); ABG TCO2 20.1 MMOL/L (23-27); Allen Test Positive
[2017-07-16] MEDS: methylPREDNISolone SOD SUC 40 MG/1 ML VIAL IV SCH ×3 (04:12→21:57)
[2017-07-16 06:13] LABS: Basophils % 0.1 % (0.0-0.8); Hematocrit 38.4 VOL% (35.7-47.0); Hemoglobin 12.8 GM/DL (12.0-16.0); Immature Granulocytes % 0.9 %; Lymphocytes # 0.3 10*3/uL (1.4-4.0); Lymphocytes % 1.4 % (21.3-54.2); Mean Corpuscular HGB Conc 33.3 GM/DL (32-36); Mean Corpuscular Hemoglobin 33 PG (27-34); Mean Corpuscular Volume 98.5 FL (87-102); Mean Platelet Volume 10.1 FL (9.6-12.0); Monocytes # 0.4 10*3/uL (0.11-0.8); Monocytes % 1.9 % (1.7-12.7); NRBC # 0.02 10*3/uL; Neutrophils # 20.5 10*3/uL (1.4-7.4); Neutrophils % 95.7 % (38.7-73.9); Platelet Count 215 T/CUMM (130-400); White Blood Count 21.4 T/CUMM (4-12)
[2017-07-16] MEDS: ALBUTEROL 0.4 MG/ML 30 ML/BOTTLE PO SCH ×3 (06:14→23:45)
[2017-07-16 06:40] LABS: Calcium 9.1 MG/DL (8.5-10.1); Osmolality,Calculated 301.1 MOS/KG (273-304); Potassium 4.5 MMOL/L (3.5-5.1)
[2017-07-16 06:56] LABS: Giant Platelets Few; Hypochromasia 1+; Lymphocytes 1 % (20-55); Ovalocytes Slight; Platelet Estimate Adequate; Segmented Neutrophils 96 % (50-85); Total Cells Counted 100
[2017-07-16 06:57] LABS: Microcytosis Slight
[2017-07-16] MEDS: SODIUM CHLORIDE 0.9% 1,000 ML IV SCH ×2 (08:24→20:00)
[2017-07-16] MEDS: miSOPROStol 200 MCG TABLET PO SCH ×4 (09:15→21:57)
[2017-07-16] MEDS: DOCUSATE SODIUM 100 MG CAPSULE PO SCH ×2 (09:15→21:57)
[2017-07-16] MEDS: amLODIPine 10 MG TABLET PO SCH (09:15)
[2017-07-16] MEDS: MONTELUKAST 10 MG TABLET PO SCH ×2 (09:15→21:57)
[2017-07-16] MEDS: DILTIAZEM CD 300 MG CAPSULE PO SCH (09:15)
[2017-07-16] MEDS: PANTOPRAZOLE 40 MG TABLET PO SCH (09:16)
[2017-07-16] MEDS: cefTRIAXone 1,000 MG in SYRINGE 1 EACH IV SCH (09:16)
[2017-07-16 10:20] LABS: Alanine Aminotransferase 25 U/L (13-56); Albumin 3.3 G/DL (3.4-5.0); Alkaline Phosphatase 48 U/L (45-117); Aspartate Amino Transferase 19 U/L (0-37); Bilirubin,Direct < 0.100 MG/DL (0.0-0.20); Bilirubin,Indirect 0.3 MG/DL (0.0-1.0); Bilirubin,Total < 0.39 MG/DL (0.2-1.0); Total Protein 5.8 G/DL (6.4-8.3)
[2017-07-16 10:23] LABS: Rheumatoid Factor < 15 IU/ML (<15)
[2017-07-16] MEDS: CLORAZEPATE 3.75 MG TABLET PO SCH ×3 (10:26→21:57)
[2017-07-16] MEDS: BUDESONIDE/FORMOTEROL 160-4.5 INHALER 6 GM INH SCH ×2 (10:26→21:57)
[2017-07-16 12:06] LABS: Hepatitis A Ab IgM Quant 0.09 Index; Hepatitis A Ab IgM Result Negative (Negative); Hepatitis B Core IgM Quant 0.28 Index; Hepatitis B Core IgM Result Negative (Negative); Hepatitis B Surface Ag Quant 0.15 Index; Hepatitis B Surface Ag Result Negative (Negative); Hepatitis C Virus Ab Quant 0.04 Index; Hepatitis C Virus Ab Result Negative (Negative)
[2017-07-16 12:58] LABS: Rapid Plasma Reagin Confirm REACTIVE (Nonreactive)
[2017-07-16] MEDS: THEOPHYLLINE ER (24 HR) 300 MG CAPSULE PO SCH (16:24)
[2017-07-16] MEDS: ENOXAPARIN 40 MG/0.4 ML SYRINGE SUBCUT SCH (21:57)
[2017-07-17] MEDS: LEVALBUTEROL 1.25 MG/3 ML NEB RESP TX SCH ×5 (02:48→20:03)
[2017-07-17 04:17] LABS: ABG Base Excess -3.8 MMOL/L (-2.5-2.5); ABG HCO3 20.9 MMOL/L (20-26); ABG Oxygen Saturation 92.6 % (95-100); ABG PCO2 36.6 MM HG (35-48); ABG PH 7.374 (7.35-7.45); ABG PO2 69.7 MM HG (80-95)
[2017-07-17] MEDS: methylPREDNISolone SOD SUC 40 MG/1 ML VIAL IV SCH ×3 (05:45→20:42)
[2017-07-17] MEDS: ALBUTEROL 0.4 MG/ML 30 ML/BOTTLE PO SCH ×3 (07:02→22:18)
[2017-07-17] MEDS: SODIUM CHLORIDE 0.9% 1,000 ML IV SCH (07:25)
[2017-07-17 07:47] LABS: Basophils % 0.1 % (0.0-0.8); Hematocrit 36.8 VOL% (35.7-47.0); Hemoglobin 12.4 GM/DL (12.0-16.0); Immature Granulocytes % 1.9 %; Immature Granulocytes Absolute 0.43 #; Lymphocytes # 0.4 10*3/uL (1.4-4.0); Lymphocytes % 1.7 % (21.3-54.2); Mean Corpuscular HGB Conc 33.7 GM/DL (32-36); Mean Corpuscular Hemoglobin 33 PG (27-34); Mean Corpuscular Volume 97.9 FL (87-102); Mean Platelet Volume 10.1 FL (9.6-12.0); Monocytes # 0.5 10*3/uL (0.11-0.8); Monocytes % 2.1 % (1.7-12.7); Neutrophils # 21.5 10*3/uL (1.4-7.4); Neutrophils % 94.2 % (38.7-73.9); Platelet Count 211 T/CUMM (130-400); Red Blood Count 3.76 MC/CUMM (3.8-5.5); White Blood Count 22.9 T/CUMM (4-12)
[2017-07-17 08:06] LABS: Band Neutrophils 1 % (0-10); Hypochromasia 1+; Lymphocytes 1 % (20-55); Segmented Neutrophils 97 % (50-85); Total Cells Counted 100
[2017-07-17 08:07] LABS: Microcytosis Slight; Platelet Estimate Normal
[2017-07-17 08:14] LABS: Calcium 9.3 MG/DL (8.5-10.1); Osmolality,Calculated 304.1 MOS/KG (273-304)
[2017-07-17 09:02] LABS: Double Stranded DNA Antibodies < 25.0 IU/ML
[2017-07-17] MEDS: miSOPROStol 200 MCG TABLET PO SCH ×4 (09:23→20:41)
[2017-07-17] MEDS: DOCUSATE SODIUM 100 MG CAPSULE PO SCH ×2 (09:24→20:43)
[2017-07-17] MEDS: PANTOPRAZOLE 40 MG TABLET PO SCH (09:24)
[2017-07-17] MEDS: cefTRIAXone 1,000 MG in SYRINGE 1 EACH IV SCH (09:24)
[2017-07-17] MEDS: MONTELUKAST 10 MG TABLET PO SCH ×2 (09:24→20:42)
[2017-07-17] MEDS: DILTIAZEM CD 300 MG CAPSULE PO SCH (09:24)
[2017-07-17] MEDS: CLORAZEPATE 3.75 MG TABLET PO SCH ×3 (09:24→20:41)
[2017-07-17] MEDS: amLODIPine 10 MG TABLET PO SCH (09:24)
[2017-07-17] MEDS: BUDESONIDE/FORMOTEROL 160-4.5 INHALER 6 GM INH SCH ×2 (09:26→20:41)
[2017-07-17] MEDS: cefTAZidime 500 MG in SYRINGE 1 EACH IV SCH ×2 (11:52→21:42)
[2017-07-17] MEDS: SODIUM ACETATE 100 MEQ in DEXTROSE 5% 1,000 ML IV SCH ×2 (11:54→22:16)
[2017-07-17] MEDS: THEOPHYLLINE ER (24 HR) 300 MG CAPSULE PO SCH (16:39)
[2017-07-17] MEDS: ENOXAPARIN 40 MG/0.4 ML SYRINGE SUBCUT SCH (20:41)
[2017-07-18] MEDS: LEVALBUTEROL 1.25 MG/3 ML NEB RESP TX SCH ×3 (00:27→07:50)
[2017-07-18] MEDS: methylPREDNISolone SOD SUC 40 MG/1 ML VIAL IV SCH ×3 (05:07→21:02)
[2017-07-18] MEDS: ALBUTEROL 0.4 MG/ML 30 ML/BOTTLE PO SCH ×3 (05:08→21:02)
[2017-07-18 06:04] LABS: Basophils % 0.2 % (0.0-0.8); Hematocrit 34.2 VOL% (35.7-47.0); Hemoglobin 11.1 GM/DL (12.0-16.0); Immature Granulocytes % 2.8 %; Immature Granulocytes Absolute 0.48 #; Lymphocytes # 0.3 10*3/uL (1.4-4.0); Lymphocytes % 1.7 % (21.3-54.2); Mean Corpuscular HGB Conc 32.5 GM/DL (32-36); Mean Corpuscular Hemoglobin 33 PG (27-34); Mean Platelet Volume 10.5 FL (9.6-12.0); Monocytes # 0.4 10*3/uL (0.11-0.8); Monocytes % 2.6 % (1.7-12.7); Neutrophils # 15.6 10*3/uL (1.4-7.4); Neutrophils % 92.7 % (38.7-73.9); Platelet Count 183 T/CUMM (130-400); Red Blood Count 3.42 MC/CUMM (3.8-5.5); Red Cell Distribution Width 14.6 % (9.3-17.3); White Blood Count 16.9 T/CUMM (4-12)
[2017-07-18 06:26] LABS: Calcium 8.8 MG/DL (8.5-10.1); Osmolality,Calculated 301.1 MOS/KG (273-304); Potassium 4.8 MMOL/L (3.5-5.1)
[2017-07-18 06:36] LABS: Hypochromasia 1+; Macrocytosis 1+; Platelet Estimate Adequate; Segmented Neutrophils 96 % (50-85); Total Cells Counted 100
[2017-07-18] MEDS ORDERED: LEVALBUTEROL 1.25 MG/3 ML NEB RESP TX SCH (08:17)
[2017-07-18] MEDS: miSOPROStol 200 MCG TABLET PO SCH ×4 (08:50→21:01)
[2017-07-18] MEDS: PANTOPRAZOLE 40 MG TABLET PO SCH (08:50)
[2017-07-18] MEDS: DILTIAZEM CD 300 MG CAPSULE PO SCH (08:50)
[2017-07-18] MEDS: MONTELUKAST 10 MG TABLET PO SCH ×2 (08:50→21:01)
[2017-07-18] MEDS: CLORAZEPATE 3.75 MG TABLET PO SCH ×3 (08:50→21:02)
[2017-07-18] MEDS: DOCUSATE SODIUM 100 MG CAPSULE PO SCH ×2 (08:51→21:03)
[2017-07-18] MEDS: BUDESONIDE/FORMOTEROL 160-4.5 INHALER 6 GM INH SCH ×2 (08:51→21:03)
[2017-07-18] MEDS: amLODIPine 10 MG TABLET PO SCH (08:51)
[2017-07-18] MEDS: cefTAZidime 500 MG in SYRINGE 1 EACH IV SCH ×2 (09:00→21:05)
[2017-07-18] MEDS ORDERED: SULFAMETHOX/TRIMETHOPRIM 800-160 MG TABLET PO SCH (11:00)
[2017-07-18] MEDS: SULFAMETHOX/TRIMETHOPRIM 400-80 MG TABLET PO SCH (13:45)
[2017-07-18] MEDS: IPRATROPIUM 500 MCG/2.5 ML NEB RESP TX SCH ×2 (14:14→19:53)
[2017-07-18] MEDS: THEOPHYLLINE ER (24 HR) 300 MG CAPSULE PO SCH (16:14)
[2017-07-18 17:15] LABS: Glomerular Basement Membrane A < 0.2 U; Myeloperoxidase Antibody < 0.2 U
[2017-07-18] MEDS: ENOXAPARIN 30 MG/0.3 ML SYRINGE SUBCUT SCH (21:01)
[2017-07-19] MEDS: IPRATROPIUM 500 MCG/2.5 ML NEB RESP TX SCH ×4 (00:39→19:37)
[2017-07-19] MEDS: methylPREDNISolone SOD SUC 40 MG/1 ML VIAL IV SCH ×3 (04:28→21:04)
[2017-07-19 06:07] LABS: Basophils % 0.2 % (0.0-0.8); Hematocrit 38.1 VOL% (35.7-47.0); Hemoglobin 12.5 GM/DL (12.0-16.0); Immature Granulocytes % 3.3 %; Lymphocytes # 0.3 10*3/uL (1.4-4.0); Lymphocytes % 1.9 % (21.3-54.2); Mean Corpuscular HGB Conc 32.8 GM/DL (32-36); Mean Corpuscular Hemoglobin 33 PG (27-34); Mean Corpuscular Volume 99.5 FL (87-102); Mean Platelet Volume 10.5 FL (9.6-12.0); Monocytes # 0.3 10*3/uL (0.11-0.8); Monocytes % 1.9 % (1.7-12.7); Neutrophils # 16.9 10*3/uL (1.4-7.4); Neutrophils % 92.7 % (38.7-73.9); Platelet Count 205 T/CUMM (130-400); Red Blood Count 3.83 MC/CUMM (3.8-5.5); Red Cell Distribution Width 14.1 % (9.3-17.3); White Blood Count 18.2 T/CUMM (4-12)
[2017-07-19] MEDS: ALBUTEROL 0.4 MG/ML 30 ML/BOTTLE PO SCH ×3 (06:15→21:06)
[2017-07-19 06:27] LABS: Calcium 9.2 MG/DL (8.5-10.1); Potassium 4.9 MMOL/L (3.5-5.1)
[2017-07-19 07:01] LABS: Band Neutrophils 1 % (0-10); Hypochromasia 1+; Platelet Estimate Adequate; Segmented Neutrophils 94 % (50-85); Total Cells Counted 100
[2017-07-19] MEDS: LEVALBUTEROL 1.25 MG/3 ML NEB RESP TX PRN ×3 (07:12→13:46)
[2017-07-19] MEDS: PANTOPRAZOLE 40 MG TABLET PO SCH (09:00)
[2017-07-19] MEDS: SULFAMETHOX/TRIMETHOPRIM 400-80 MG TABLET PO SCH (09:00)
[2017-07-19] MEDS: MONTELUKAST 10 MG TABLET PO SCH ×2 (09:00→21:03)
[2017-07-19] MEDS: DILTIAZEM CD 300 MG CAPSULE PO SCH (09:00)
[2017-07-19] MEDS: DOCUSATE SODIUM 100 MG CAPSULE PO SCH ×2 (09:00→21:03)
[2017-07-19] MEDS: miSOPROStol 200 MCG TABLET PO SCH ×4 (09:00→21:03)
[2017-07-19] MEDS: amLODIPine 10 MG TABLET PO SCH (09:00)
[2017-07-19] MEDS: CLORAZEPATE 3.75 MG TABLET PO SCH ×3 (09:01→21:05)
[2017-07-19] MEDS: BUDESONIDE/FORMOTEROL 160-4.5 INHALER 6 GM INH SCH ×2 (09:02→21:05)
[2017-07-19] MEDS: cefTAZidime 500 MG in SYRINGE 1 EACH IV SCH ×2 (09:02→21:04)
[2017-07-19] MEDS: ACETAMINOPHEN 325 MG TABLET PO PRN (13:28)
[2017-07-19] MEDS: THEOPHYLLINE ER (24 HR) 300 MG CAPSULE PO SCH (16:27)
[2017-07-19] MEDS: ENOXAPARIN 30 MG/0.3 ML SYRINGE SUBCUT SCH (21:03)
[2017-07-20] MEDS: IPRATROPIUM 500 MCG/2.5 ML NEB RESP TX SCH ×4 (00:21→19:32)
[2017-07-20] MEDS: methylPREDNISolone SOD SUC 40 MG/1 ML VIAL IV SCH ×3 (05:45→21:18)
[2017-07-20] MEDS: ALBUTEROL 0.4 MG/ML 30 ML/BOTTLE PO SCH ×3 (05:45→21:12)
[2017-07-20] MEDS: CLORAZEPATE 3.75 MG TABLET PO SCH ×3 (08:04→21:14)
[2017-07-20] MEDS: SULFAMETHOX/TRIMETHOPRIM 400-80 MG TABLET PO SCH (08:04)
[2017-07-20] MEDS: PANTOPRAZOLE 40 MG TABLET PO SCH (08:04)
[2017-07-20] MEDS: DOCUSATE SODIUM 100 MG CAPSULE PO SCH ×2 (08:04→21:14)
[2017-07-20] MEDS: miSOPROStol 200 MCG TABLET PO SCH (08:04)
[2017-07-20] MEDS: MONTELUKAST 10 MG TABLET PO SCH ×2 (08:05→21:14)
[2017-07-20] MEDS: cefTAZidime 500 MG in SYRINGE 1 EACH IV SCH ×3 (08:05→21:27)
[2017-07-20] MEDS: DILTIAZEM CD 300 MG CAPSULE PO SCH (08:05)
[2017-07-20] MEDS: amLODIPine 10 MG TABLET PO SCH (08:05)
[2017-07-20] MEDS: BUDESONIDE/FORMOTEROL 160-4.5 INHALER 6 GM INH SCH ×2 (08:08→21:35)
[2017-07-20 08:29] LABS: Basophils % 0.1 % (0.0-0.8); Hematocrit 39.5 VOL% (35.7-47.0); Hemoglobin 12.8 GM/DL (12.0-16.0); Immature Granulocytes % 3.9 %; Immature Granulocytes Absolute 0.69 #; Lymphocytes # 0.4 10*3/uL (1.4-4.0); Lymphocytes % 2.1 % (21.3-54.2); Mean Corpuscular HGB Conc 32.4 GM/DL (32-36); Mean Corpuscular Hemoglobin 33 PG (27-34); Mean Corpuscular Volume 100.5 FL (87-102); Mean Platelet Volume 10.3 FL (9.6-12.0); Monocytes # 0.4 10*3/uL (0.11-0.8); Monocytes % 2.4 % (1.7-12.7); Neutrophils # 16.3 10*3/uL (1.4-7.4); Neutrophils % 91.5 % (38.7-73.9); Platelet Count 196 T/CUMM (130-400); Red Blood Count 3.93 MC/CUMM (3.8-5.5); White Blood Count 17.8 T/CUMM (4-12)
[2017-07-20 08:46] LABS: Osmolality,Calculated 293.4 MOS/KG (273-304); Potassium 4.7 MMOL/L (3.5-5.1)
[2017-07-20 08:47] LABS: Band Neutrophils 1 % (0-10); Giant Platelets Few; Hypochromasia 1+; Lymphocytes 2 % (20-55); Microcytosis Slight; Platelet Estimate Adequate; Segmented Neutrophils 93 % (50-85); Total Cells Counted 100
[2017-07-20] MEDS ORDERED: ZINC OXIDE PASTE 113 GM TUBE TOP PRN (15:55)
[2017-07-20] MEDS: NYSTATIN 500,000 UNIT/5 ML UDCUP SWISH/SWAL SCH ×2 (16:23→21:14)
[2017-07-20] MEDS: THEOPHYLLINE ER (24 HR) 300 MG CAPSULE PO SCH (16:23)
[2017-07-20] MEDS ORDERED: TUBERCULIN SKIN TEST 0.1 ML SYRINGE INTRADERM ONE (18:04)
[2017-07-20] MEDS: ENOXAPARIN 30 MG/0.3 ML SYRINGE SUBCUT SCH (21:17)
[2017-07-21] MEDS: IPRATROPIUM 500 MCG/2.5 ML NEB RESP TX SCH ×4 (00:36→19:10)
[2017-07-21] MEDS: methylPREDNISolone SOD SUC 40 MG/1 ML VIAL IV SCH ×3 (05:18→21:29)
[2017-07-21] MEDS: ALBUTEROL 0.4 MG/ML 30 ML/BOTTLE PO SCH ×3 (06:02→21:30)
[2017-07-21 07:05] LABS: Basophils % 0.2 % (0.0-0.8); Hematocrit 39.4 VOL% (35.7-47.0); Hemoglobin 12.8 GM/DL (12.0-16.0); Immature Granulocytes % 3.3 %; Immature Granulocytes Absolute 0.57 #; Lymphocytes # 0.4 10*3/uL (1.4-4.0); Mean Corpuscular HGB Conc 32.5 GM/DL (32-36); Mean Corpuscular Hemoglobin 32 PG (27-34); Mean Corpuscular Volume 99.5 FL (87-102); Mean Platelet Volume 9.6 FL (9.6-12.0); Monocytes # 0.3 10*3/uL (0.11-0.8); Monocytes % 1.5 % (1.7-12.7); Neutrophils # 15.9 10*3/uL (1.4-7.4); Platelet Count 192 T/CUMM (130-400); Red Blood Count 3.96 MC/CUMM (3.8-5.5); Red Cell Distribution Width 13.7 % (9.3-17.3); White Blood Count 17.1 T/CUMM (4-12)
[2017-07-21 07:16] LABS: PT Patient Result 10.7 SECS; Partial Thromboplastin Time 23.3 SECS (0-40)
[2017-07-21] MEDS ORDERED: diphenhydrAMINE 50 MG/1 ML VIAL IM ONE (07:30)
[2017-07-21] MEDS ORDERED: BENZONATATE 100 MG CAPSULE PO ONE (07:30)
[2017-07-21] MEDS ORDERED: MEPERIDINE 25 MG/1 ML VIAL IM ONE (07:30)
[2017-07-21 07:33] LABS: Albumin 2.7 G/DL (3.4-5.0); Calcium 9.8 MG/DL (8.5-10.1)
[2017-07-21 07:34] LABS: Band Neutrophils 1 % (0-10); Eosinophils 1 % (0-10); Giant Platelets Few; Hypochromasia 1+; Lymphocytes 1 % (20-55); Microcytosis Slight; Osmolality,Calculated 287.4 MOS/KG (273-304); Platelet Estimate Normal; Potassium 4.8 MMOL/L (3.5-5.1); Segmented Neutrophils 96 % (50-85); Total Cells Counted 100
[2017-07-21] MEDS: cefTAZidime 500 MG in SYRINGE 1 EACH IV SCH ×3 (07:57→21:38)
[2017-07-21] MEDS ORDERED: LIDOCAINE 2% 20 ML VIAL RESP TX ONE (08:00)
[2017-07-21] MEDS ORDERED: LIDOCAINE 1% 20 ML VIAL MISC INJ ONE (08:00)
[2017-07-21] MEDS ORDERED: LIDOCAINE 2% VISCOUS 100 ML BOTTLE SWISH/SPIT ONE (08:00)
[2017-07-21] MEDS: DOCUSATE SODIUM 100 MG CAPSULE PO SCH ×2 (09:08→21:30)
[2017-07-21] MEDS: PANTOPRAZOLE 40 MG TABLET PO SCH (09:09)
[2017-07-21] MEDS: BUDESONIDE/FORMOTEROL 160-4.5 INHALER 6 GM INH SCH ×2 (09:09→21:24)
[2017-07-21] MEDS: MONTELUKAST 10 MG TABLET PO SCH ×2 (09:09→21:24)
[2017-07-21] MEDS: CLORAZEPATE 3.75 MG TABLET PO SCH ×3 (09:09→21:24)
[2017-07-21] MEDS: DILTIAZEM CD 300 MG CAPSULE PO SCH (13:10)
[2017-07-21] MEDS: SULFAMETHOX/TRIMETHOPRIM 400-80 MG TABLET PO SCH (13:10)
[2017-07-21] MEDS: NYSTATIN 500,000 UNIT/5 ML UDCUP SWISH/SWAL SCH ×4 (13:10→21:24)
[2017-07-21] MEDS: amLODIPine 10 MG TABLET PO SCH (13:10)
[2017-07-21] MEDS: FLUCONAZOLE 100 MG TABLET PO SCH (13:10)
[2017-07-21] MEDS: THEOPHYLLINE ER (24 HR) 300 MG CAPSULE PO SCH (16:30)
[2017-07-21] MEDS: ENOXAPARIN 30 MG/0.3 ML SYRINGE SUBCUT SCH (21:28)
[2017-07-22] MEDS: IPRATROPIUM 500 MCG/2.5 ML NEB RESP TX SCH ×3 (00:54→14:26)
[2017-07-22] MEDS: methylPREDNISolone SOD SUC 40 MG/1 ML VIAL IV SCH ×2 (05:19→14:12)
[2017-07-22] MEDS: ALBUTEROL 0.4 MG/ML 30 ML/BOTTLE PO SCH ×2 (05:23→14:24)
[2017-07-22 07:11] LABS: Basophils % 0.1 % (0.0-0.8); Hematocrit 40.9 VOL% (35.7-47.0); Hemoglobin 13.3 GM/DL (12.0-16.0); Immature Granulocytes % 3.1 %; Lymphocytes # 0.3 10*3/uL (1.4-4.0); Mean Corpuscular HGB Conc 32.5 GM/DL (32-36); Mean Corpuscular Hemoglobin 32 PG (27-34); Mean Corpuscular Volume 99.5 FL (87-102); Mean Platelet Volume 9.8 FL (9.6-12.0); Monocytes # 0.2 10*3/uL (0.11-0.8); Monocytes % 1.5 % (1.7-12.7); Neutrophils # 15.1 10*3/uL (1.4-7.4); Neutrophils % 93.3 % (38.7-73.9); Platelet Count 199 T/CUMM (130-400); Red Blood Count 4.11 MC/CUMM (3.8-5.5); Red Cell Distribution Width 13.7 % (9.3-17.3); White Blood Count 16.2 T/CUMM (4-12)
[2017-07-22 07:30] LABS: Band Neutrophils 1 % (0-10); Lymphocytes 2 % (20-55); Segmented Neutrophils 96 % (50-85); Total Cells Counted 100
[2017-07-22 07:31] LABS: Hypochromasia 1+; Platelet Estimate Adequate
[2017-07-22 07:47] LABS: Calcium 9.6 MG/DL (8.5-10.1); Osmolality,Calculated 284.5 MOS/KG (273-304); Potassium 4.8 MMOL/L (3.5-5.1)
[2017-07-22] MEDS: DILTIAZEM CD 300 MG CAPSULE PO SCH (09:16)
[2017-07-22] MEDS: amLODIPine 10 MG TABLET PO SCH (09:16)
[2017-07-22] MEDS: DOCUSATE SODIUM 100 MG CAPSULE PO SCH (09:17)
[2017-07-22] MEDS: MONTELUKAST 10 MG TABLET PO SCH (09:17)
[2017-07-22] MEDS: PANTOPRAZOLE 40 MG TABLET PO SCH (09:17)
[2017-07-22] MEDS: FLUCONAZOLE 100 MG TABLET PO SCH (09:17)
[2017-07-22] MEDS: CLORAZEPATE 3.75 MG TABLET PO SCH ×2 (09:17→15:39)
[2017-07-22] MEDS: BUDESONIDE/FORMOTEROL 160-4.5 INHALER 6 GM INH SCH (09:17)
[2017-07-22] MEDS: NYSTATIN 500,000 UNIT/5 ML UDCUP SWISH/SWAL SCH ×2 (09:17→14:24)
[2017-07-22] MEDS: SULFAMETHOX/TRIMETHOPRIM 400-80 MG TABLET PO SCH (09:17)
[2017-07-22] MEDS: cefTAZidime 500 MG in SYRINGE 1 EACH IV SCH (09:23)
[2017-07-22] MEDS ORDERED: SODIUM PHOSPHATE INJ 30 MMOL in SODIUM CHLORIDE 0.9% 250 ML IV ONE (10:00)
[2017-07-22 11:17] VITALS: BP 127/65
== END 2017-07-22 15:30 | disposition swing bed (61) | DRG 166 ==
LOC: N.EDINP 15:59 → N.ED 15:59 → N.2E 20:03 → SUATTDRO 07-10 14:04 → N.ICU 07-13 15:08 → N.5E 07-16 21:11
PROVIDERS: ATTEND Internal Medicine

== ENCOUNTER 2017-09-17 12:02 | Inpatient (IN) ==
[2017-09-17] MEDS ORDERED: ASPIRIN 325 MG TABLET PO STA (14:03)
[2017-09-17] MEDS ORDERED: ENOXAPARIN 100 MG/ML SYRINGE SUBCUT STA (14:03)
[2017-09-17] MEDS ORDERED: ONDANSETRON 4 MG/2 ML VIAL IV STA (14:03)
[2017-09-17] MEDS ORDERED: NITROGLYCERIN 2% OINT 1 INCH/GM PACK TOP STA (14:03)
[2017-09-17] MEDS ORDERED: MORPHINE 4 MG/1 ML VIAL IV STA (14:03)
[2017-09-17] MEDS ORDERED: ENOXAPARIN 60 MG/0.6 ML SYRINGE ONE (14:39)
[2017-09-17] MEDS ORDERED: NITROGLYCERIN 2% OINT 1 INCH/GM PACK TOP ONE (14:39)
[2017-09-17] MEDS ORDERED: ONDANSETRON 4 MG/2 ML VIAL ONE (14:39)
[2017-09-17] MEDS ORDERED: MORPHINE 4 MG/1 ML VIAL ONE (14:39)
[2017-09-17] MEDS ORDERED: ASPIRIN 325 MG TABLET ONE (14:40)
[2017-09-17 15:04] LABS: Basophils % 0.2 % (0.0-0.8); Eosinophils # 0.2 10*3/uL (0.0-0.87); Eosinophils % 2.5 % (0.00-10.9); Hematocrit 33.1 VOL% (35.7-47.0); Hemoglobin 10.5 GM/DL (12.0-16.0); Immature Granulocytes % 0.5 %; Immature Granulocytes Absolute 0.04 #; Lymphocytes # 1.4 10*3/uL (1.4-4.0); Lymphocytes % 16.4 % (21.3-54.2); Mean Corpuscular HGB Conc 31.7 GM/DL (32-36); Mean Corpuscular Hemoglobin 32 PG (27-34); Mean Platelet Volume 10.4 FL (9.6-12.0); Monocytes # 0.5 10*3/uL (0.11-0.8); Monocytes % 6.2 % (1.7-12.7); Neutrophils # 6.5 10*3/uL (1.4-7.4); Neutrophils % 74.2 % (38.7-73.9); Platelet Count 241 T/CUMM (130-400); Red Blood Count 3.31 MC/CUMM (3.8-5.5); White Blood Count 8.7 T/CUMM (4-12)
[2017-09-17 15:06] LABS: Alanine Aminotransferase 14 U/L (13-56); Albumin 3.3 G/DL (3.4-5.0); Alkaline Phosphatase 83 U/L (45-117); Aspartate Amino Transferase 17 U/L (0-37); Bilirubin,Total < 0.39 MG/DL (0.2-1.0); Blood Urea Nitrogen 12 MG/DL (7-18); Calcium 9.8 MG/DL (8.5-10.1); Glucose 92 MG/DL (74-106); Potassium 3.1 MMOL/L (3.5-5.1); Sodium 143 MMOL/L (136-145); Total Protein 7.2 G/DL (6.4-8.3)
[2017-09-17 15:11] LABS: PT Patient Result 10.3 SECS
[2017-09-17] MEDS ORDERED: POTASSIUM CHLORIDE 20 MEQ TABLET PO STA (15:22)
[2017-09-17] MEDS ORDERED: DOCUSATE SODIUM 100 MG CAPSULE PO PRN (15:47)
[2017-09-17] MEDS ORDERED: ACETAMINOPHEN 325 MG TABLET PO PRN (15:47)
[2017-09-17] MEDS ORDERED: DEXTROSE 50% 25 GM/50 ML VIAL IV PRN (15:47)
[2017-09-17] MEDS ORDERED: GLUCAGON 1 MG VIAL IM PRN (15:47)
[2017-09-17] MEDS ORDERED: ONDANSETRON 4 MG/2 ML VIAL IV PRN (15:47)
[2017-09-17] MEDS: INSULIN REGULAR 100 UNIT/ML SUBCUT SCH ×2 (17:56→21:03)
[2017-09-17] MEDS: THEOPHYLLINE ER (24 HR) 300 MG CAPSULE PO SCH (18:12)
[2017-09-17] MEDS: BUDESONIDE/FORMOTEROL 160-4.5 INHALER 6 GM INH SCH (20:13)
[2017-09-17] MEDS: CARVEDILOL 6.25 MG TABLET PO SCH (20:15)
[2017-09-17] MEDS: POTASSIUM CHLORIDE 10 MEQ TABLET PO SCH (20:15)
[2017-09-17] MEDS: LEVALBUTEROL 1.25 MG/3 ML NEB RESP TX PRN (21:04)
[2017-09-18 05:16] LABS: Basophils % 0.3 % (0.0-0.8); Eosinophils # 0.2 10*3/uL (0.0-0.87); Hematocrit 30.5 VOL% (35.7-47.0); Hemoglobin 9.8 GM/DL (12.0-16.0); Immature Granulocytes % 0.5 %; Immature Granulocytes Absolute 0.03 #; Lymphocytes # 1.2 10*3/uL (1.4-4.0); Lymphocytes % 18.1 % (21.3-54.2); Mean Corpuscular HGB Conc 32.1 GM/DL (32-36); Mean Corpuscular Hemoglobin 32 PG (27-34); Mean Corpuscular Volume 98.7 FL (87-102); Mean Platelet Volume 10.3 FL (9.6-12.0); Monocytes # 0.4 10*3/uL (0.11-0.8); Monocytes % 6.6 % (1.7-12.7); Neutrophils # 4.7 10*3/uL (1.4-7.4); Neutrophils % 71.5 % (38.7-73.9); Platelet Count 210 T/CUMM (130-400); Red Blood Count 3.09 MC/CUMM (3.8-5.5); Red Cell Distribution Width 15.1 % (9.3-17.3); White Blood Count 6.6 T/CUMM (4-12)
[2017-09-18 05:49] LABS: Calcium 9.1 MG/DL (8.5-10.1); Osmolality,Calculated 288.6 MOS/KG (273-304); Potassium 3.6 MMOL/L (3.5-5.1)
[2017-09-18] MEDS: DILTIAZEM CD 300 MG CAPSULE PO SCH (08:16)
[2017-09-18] MEDS: POTASSIUM CHLORIDE 10 MEQ TABLET PO SCH ×2 (08:16→20:53)
[2017-09-18] MEDS: CARVEDILOL 6.25 MG TABLET PO SCH ×2 (08:17→20:53)
[2017-09-18] MEDS: amLODIPine 10 MG TABLET PO SCH (08:17)
[2017-09-18] MEDS: PANTOPRAZOLE 40 MG TABLET PO SCH (08:17)
[2017-09-18] MEDS: INSULIN REGULAR 100 UNIT/ML SUBCUT SCH ×4 (08:18→20:52)
[2017-09-18] MEDS: BUDESONIDE/FORMOTEROL 160-4.5 INHALER 6 GM INH SCH ×2 (08:18→20:53)
[2017-09-18] MEDS: LEVALBUTEROL 1.25 MG/3 ML NEB RESP TX PRN ×4 (09:25→23:51)
[2017-09-18] MEDS: THEOPHYLLINE ER (24 HR) 300 MG CAPSULE PO SCH (16:27)
[2017-09-18] MEDS: MONTELUKAST 10 MG TABLET PO SCH (20:53)
[2017-09-19] MEDS: LEVALBUTEROL 1.25 MG/3 ML NEB RESP TX PRN ×2 (05:28→07:50)
[2017-09-19 07:29] LABS: Basophils % 0.3 % (0.0-0.8); Eosinophils # 0.3 10*3/uL (0.0-0.87); Eosinophils % 3.6 % (0.00-10.9); Hematocrit 32.5 VOL% (35.7-47.0); Hemoglobin 9.9 GM/DL (12.0-16.0); Immature Granulocytes % 0.3 %; Immature Granulocytes Absolute 0.02 #; Lymphocytes # 1.4 10*3/uL (1.4-4.0); Lymphocytes % 20.1 % (21.3-54.2); Mean Corpuscular HGB Conc 30.5 GM/DL (32-36); Mean Corpuscular Hemoglobin 31 PG (27-34); Mean Corpuscular Volume 102.2 FL (87-102); Mean Platelet Volume 9.6 FL (9.6-12.0); Monocytes # 0.5 10*3/uL (0.11-0.8); Monocytes % 6.5 % (1.7-12.7); Neutrophils # 4.8 10*3/uL (1.4-7.4); Neutrophils % 69.2 % (38.7-73.9); Platelet Count 217 T/CUMM (130-400); Red Blood Count 3.18 MC/CUMM (3.8-5.5); Red Cell Distribution Width 14.9 % (9.3-17.3); White Blood Count 6.9 T/CUMM (4-12)
[2017-09-19 08:46] LABS: Alanine Aminotransferase 13 U/L (13-56); Albumin 3.2 G/DL (3.4-5.0); Alkaline Phosphatase 75 U/L (45-117); Aspartate Amino Transferase 16 U/L (0-37); Bilirubin,Total < 0.39 MG/DL (0.2-1.0); Blood Urea Nitrogen 11 MG/DL (7-18); Calcium 9.3 MG/DL (8.5-10.1); Glucose 86 MG/DL (74-106); Osmolality,Calculated 285.7 MOS/KG (273-304); Potassium 4.2 MMOL/L (3.5-5.1); Sodium 145 MMOL/L (136-145); Total Protein 6.1 G/DL (6.4-8.3)
[2017-09-19 08:58] VITALS: BP 149/95
[2017-09-19] MEDS ORDERED: CARVEDILOL 12.5 MG TABLET PO SCH (08:59)
[2017-09-19] MEDS ORDERED: MONTELUKAST 10 MG TABLET PO SCH (09:00)
[2017-09-19] MEDS: POTASSIUM CHLORIDE 10 MEQ TABLET PO SCH (09:40)
[2017-09-19] MEDS: DILTIAZEM CD 300 MG CAPSULE PO SCH (09:40)
[2017-09-19] MEDS: amLODIPine 10 MG TABLET PO SCH (09:40)
[2017-09-19] MEDS: MONTELUKAST 10 MG TABLET PO SCH (09:41)
[2017-09-19] MEDS: PANTOPRAZOLE 40 MG TABLET PO SCH (09:41)
[2017-09-19] MEDS: INSULIN REGULAR 100 UNIT/ML SUBCUT SCH (09:46)
[2017-09-19] MEDS: BUDESONIDE/FORMOTEROL 160-4.5 INHALER 6 GM INH SCH (09:47)
[2017-09-19] MEDS ORDERED: IPRATROPIUM 500 MCG/2.5 ML NEB RESP TX SCH (13:00)
== END 2017-09-19 11:55 | disposition home or self-care (01) | DRG 191 ==
LOC: N.ED 12:02 → N.EDINP 14:48 → N.2E 17:30
PROVIDERS: ADMIT Internal Medicine Geriatric Medicine; ATTEND Internal Medicine Geriatric Medicine

== ENCOUNTER 2021-09-02 17:23 | Inpatient (IN) ==
[2021-09-02 18:02] LABS: Basophils # 0.1 10*3/uL (0.0-0.2); Basophils % 0.7 % (0.0-0.8); Eosinophils # 0.3 10*3/uL (0.0-0.87); Eosinophils % 3.9 % (0.00-10.9); Hematocrit 37.1 VOL% (35.7-47.0); Hemoglobin 11.4 GM/DL (12.0-16.0); Immature Granulocytes % 0.4 %; Immature Granulocytes Absolute 0.03 #; Lymphocytes # 1.3 10*3/uL (1.4-4.0); Lymphocytes % 17.9 % (21.3-54.2); Mean Corpuscular HGB Conc 30.7 GM/DL (32-36); Mean Corpuscular Volume 99.2 FL (87-102); Mean Platelet Volume 10.1 FL (9.6-12.0); Monocytes # 0.7 10*3/uL (0.11-0.8); Monocytes % 8.8 % (1.7-12.7); Neutrophils % 68.3 % (38.7-73.9); Platelet Count 275 T/CUMM (130-400); Red Blood Count 3.74 MC/CUMM (3.8-5.5); Red Cell Distribution Width 13.6 % (9.3-17.3); White Blood Count 7.4 T/CUMM (4-12)
[2021-09-02 18:33] LABS: Alanine Aminotransferase 16 U/L (13-56); Albumin 3.8 G/DL (3.4-5.0); Alkaline Phosphatase 90 U/L (45-117); Aspartate Amino Transferase 14 U/L (0-37); Bilirubin,Total < 0.39 MG/DL (0.20-1.00); Blood Urea Nitrogen 22 MG/DL (7-18); Calcium 10.3 MG/DL (8.5-10.1); Carbon Dioxide 33 MMOL/L (21-32); Chloride 104 MMOL/L (98-107); Estimated Glom Filtration Rate 40 ML/MIN; Glucose 153 MG/DL (74-106); Osmolality,Calculated 282.5 MOS/KG (273-304); Potassium 3.2 MMOL/L (3.5-5.1); Sodium 139 MMOL/L (136-145); Total Protein 7.7 G/DL (6.4-8.2)
[2021-09-02] MEDS ORDERED: LEVALBUTEROL 1.25 MG/3 ML NEB RESP TX STA (19:38)
[2021-09-02] MEDS ORDERED: methylPREDNISolone SOD SUC 125 MG/2 ML VIAL IV STA (19:38)
[2021-09-02] MEDS ORDERED: IPRATROPIUM 500 MCG/2.5 ML NEB RESP TX STA (19:38)
[2021-09-02] MEDS ORDERED: ONDANSETRON 4 MG/2 ML VIAL IV STA ×2 (19:38→20:53)
[2021-09-02] MEDS ORDERED: hydrALAZINE 20 MG/1 ML VIAL IV STA (19:43)
[2021-09-02] MEDS ORDERED: POTASSIUM CHLORIDE 20 MEQ TABLET PO STA (19:54)
[2021-09-02 20:09] LABS: Arterial Base Excess iSTAT 6 MMOL/L (-2.5-2.5); Arterial O2 Saturation iSTAT 100 % (95-100); Arterial PCO2 iSTAT 53 MM HG (35-48); Arterial PO2 iSTAT 209 MM HG (80-95); Arterial Total CO2 iSTAT 34 MMO/L (23-27); Arterial pH iSTAT 7.387 (7.35-7.45)
[2021-09-02] MEDS ORDERED: EPINEPHrine 1 MG/ML VIAL ONE (20:13)
[2021-09-02] MEDS ORDERED: MORPHINE 2 MG/1 ML SYRINGE ONE (20:15)
[2021-09-02] MEDS ORDERED: MORPHINE 2 MG/1 ML SYRINGE IV STA (20:53)
[2021-09-02] MEDS ORDERED: DEXTROSE 50% 25 GM/50 ML VIAL IV PRN (21:11)
[2021-09-02] MEDS ORDERED: GLUCAGON 1 MG VIAL IM PRN (21:11)
[2021-09-02] MEDS ORDERED: DEXTROSE 10% 250 ML BAG IV PRN (21:43)
[2021-09-02] MEDS ORDERED: SODIUM CHLORIDE 0.9% 1,000 ML IV SCH (22:00)
[2021-09-02] MEDS: cefTRIAXone 1,000 MG in SODIUM CHLORIDE 0.9% 100 ML IV SCH (22:39)
[2021-09-02] MEDS: AZITHROMYCIN INJ 500 MG in SODIUM CHLORIDE 0.9% 250 ML IV SCH (23:37)
[2021-09-03 05:10] LABS: Basophils % 0.2 % (0.0-0.8); Hematocrit 34.1 VOL% (35.7-47.0); Hemoglobin 10.7 GM/DL (12.0-16.0); Immature Granulocytes % 0.3 %; Immature Granulocytes Absolute 0.02 #; Lymphocytes # 0.4 10*3/uL (1.4-4.0); Lymphocytes % 5.7 % (21.3-54.2); Mean Corpuscular HGB Conc 31.4 GM/DL (32-36); Mean Platelet Volume 9.9 FL (9.6-12.0); Monocytes % 0.5 % (1.7-12.7); Neutrophils % 93.3 % (38.7-73.9); Platelet Count 262 T/CUMM (130-400); Red Blood Count 3.48 MC/CUMM (3.8-5.5); Red Cell Distribution Width 13.7 % (9.3-17.3); White Blood Count 6.3 T/CUMM (4-12)
[2021-09-03 05:32] LABS: Alanine Aminotransferase 15 U/L (13-56); Albumin 3.4 G/DL (3.4-5.0); Alkaline Phosphatase 77 U/L (45-117); Aspartate Amino Transferase 18 U/L (0-37); Bilirubin,Total < 0.39 MG/DL (0.20-1.00); Blood Urea Nitrogen 23 MG/DL (7-18); Calcium 9.9 MG/DL (8.5-10.1); Carbon Dioxide 29 MMOL/L (21-32); Chloride 108 MMOL/L (98-107); Estimated Glom Filtration Rate 48 ML/MIN; Glucose 146 MG/DL (74-106); Osmolality,Calculated 283.5 MOS/KG (273-304); Potassium 4.4 MMOL/L (3.5-5.1); Sodium 139 MMOL/L (136-145); Total Protein 7.4 G/DL (6.4-8.2)
[2021-09-03 05:51] LABS: Hypochromia Slight; Lymphocytes 4 % (20-55); Microcytosis Slight; Platelet Estimate Adequate; Total Cells Counted 100
[2021-09-03] MEDS: LEVALBUTEROL 1.25 MG/3 ML NEB RESP TX SCH ×4 (08:00→19:00)
[2021-09-03] MEDS: IPRATROPIUM 500 MCG/2.5 ML NEB RESP TX SCH ×4 (08:00→19:00)
[2021-09-03] MEDS: INSULIN REGULAR 100 UNIT/ML SUBCUT SCH ×4 (08:23→21:06)
[2021-09-03] MEDS: DILTIAZEM CD 300 MG CAPSULE PO SCH (09:02)
[2021-09-03] MEDS: ENOXAPARIN 40 MG/0.4 ML SYRINGE SUBCUT SCH (09:02)
[2021-09-03] MEDS: PANTOPRAZOLE 40 MG TABLET PO SCH (09:02)
[2021-09-03] MEDS: THEOPHYLLINE ER (24 HR) 300 MG CAPSULE PO SCH ×2 (10:00→21:28)
[2021-09-03] MEDS: methylPREDNISolone SOD SUC 40 MG/1 ML VIAL IV SCH ×2 (10:45→16:17)
[2021-09-03] MEDS ORDERED: ALBUTEROL 0.4 MG/ML 30 ML/BOTTLE PO SCH (14:00)
[2021-09-03] MEDS: cefTRIAXone 1,000 MG in SODIUM CHLORIDE 0.9% 100 ML IV SCH (21:28)
[2021-09-03] MEDS: AZITHROMYCIN INJ 500 MG in SODIUM CHLORIDE 0.9% 250 ML IV SCH (23:23)
[2021-09-04] MEDS: IPRATROPIUM 500 MCG/2.5 ML NEB RESP TX SCH ×4 (00:20→19:24)
[2021-09-04] MEDS: LEVALBUTEROL 1.25 MG/3 ML NEB RESP TX SCH ×4 (00:20→19:24)
[2021-09-04] MEDS: methylPREDNISolone SOD SUC 40 MG/1 ML VIAL IV SCH ×3 (01:56→17:20)
[2021-09-04 05:17] LABS: Basophils % 0.1 % (0.0-0.8); Hematocrit 33.6 VOL% (35.7-47.0); Hemoglobin 10.4 GM/DL (12.0-16.0); Immature Granulocytes % 0.6 %; Immature Granulocytes Absolute 0.06 #; Lymphocytes # 0.6 10*3/uL (1.4-4.0); Lymphocytes % 6.2 % (21.3-54.2); Mean Corpuscular Volume 98.5 FL (87-102); Mean Platelet Volume 10.3 FL (9.6-12.0); Monocytes # 0.2 10*3/uL (0.11-0.8); Monocytes % 2.4 % (1.7-12.7); Neutrophils % 90.7 % (38.7-73.9); Platelet Count 253 T/CUMM (130-400); Red Blood Count 3.41 MC/CUMM (3.8-5.5); Red Cell Distribution Width 13.8 % (9.3-17.3); White Blood Count 9.7 T/CUMM (4-12)
[2021-09-04 05:34] LABS: Calcium 10.7 MG/DL (8.5-10.1); Osmolality,Calculated 286.4 MOS/KG (273-304); Potassium 3.9 MMOL/L (3.5-5.1)
[2021-09-04 07:01] LABS: Eosinophils 1 % (0-10); Hypochromia Slight; Lymphocytes 5 % (20-55); Microcytosis Slight; Platelet Estimate Adequate; Total Cells Counted 100
[2021-09-04] MEDS: INSULIN REGULAR 100 UNIT/ML SUBCUT SCH ×4 (07:40→21:40)
[2021-09-04] MEDS: ENOXAPARIN 40 MG/0.4 ML SYRINGE SUBCUT SCH (08:15)
[2021-09-04] MEDS: THEOPHYLLINE ER (24 HR) 300 MG CAPSULE PO SCH ×2 (08:15→21:50)
[2021-09-04] MEDS: DILTIAZEM CD 300 MG CAPSULE PO SCH (08:15)
[2021-09-04] MEDS: PANTOPRAZOLE 40 MG TABLET PO SCH (08:15)
[2021-09-04] MEDS ORDERED: LACTATED RINGERS 1,000 ML IV SCH (09:00)
[2021-09-04] MEDS: AZITHROMYCIN 250 MG TABLET PO SCH (09:44)
[2021-09-04] MEDS: METOPROLOL SUCCINATE XL 50 MG TABLET PO SCH (15:30)
[2021-09-04] MEDS: hydrALAZINE 10 MG TABLET PO SCH ×2 (17:20→21:50)
[2021-09-04] MEDS ORDERED: METOPROLOL TARTRATE 25 MG TABLET PO SCH (21:00)
[2021-09-04] MEDS: cefTRIAXone 1,000 MG in SODIUM CHLORIDE 0.9% 100 ML IV SCH (21:58)
[2021-09-05] MEDS: IPRATROPIUM 500 MCG/2.5 ML NEB RESP TX SCH ×4 (00:03→19:49)
[2021-09-05] MEDS: LEVALBUTEROL 1.25 MG/3 ML NEB RESP TX SCH ×4 (00:03→19:49)
[2021-09-05] MEDS: methylPREDNISolone SOD SUC 40 MG/1 ML VIAL IV SCH ×3 (01:53→17:12)
[2021-09-05 05:29] LABS: Basophils % 0.1 % (0.0-0.8); Hematocrit 31.6 VOL% (35.7-47.0); Immature Granulocytes % 0.6 %; Immature Granulocytes Absolute 0.07 #; Lymphocytes # 0.4 10*3/uL (1.4-4.0); Lymphocytes % 3.8 % (21.3-54.2); Mean Corpuscular HGB Conc 31.6 GM/DL (32-36); Mean Corpuscular Volume 96.6 FL (87-102); Mean Platelet Volume 10.5 FL (9.6-12.0); Monocytes # 0.2 10*3/uL (0.11-0.8); Monocytes % 1.5 % (1.7-12.7); Platelet Count 265 T/CUMM (130-400); Red Blood Count 3.27 MC/CUMM (3.8-5.5); Red Cell Distribution Width 13.7 % (9.3-17.3); White Blood Count 11.4 T/CUMM (4-12)
[2021-09-05 05:46] LABS: Calcium 9.9 MG/DL (8.5-10.1); Osmolality,Calculated 289.5 MOS/KG (273-304); Potassium 3.9 MMOL/L (3.5-5.1)
[2021-09-05 05:59] LABS: Band Neutrophils 1 % (0-10); Hypochromia Slight; Lymphocytes 3 % (20-55); Microcytosis Slight; Ovalocytes Slight; Total Cells Counted 100
[2021-09-05 06:00] LABS: Platelet Estimate Normal
[2021-09-05] MEDS: INSULIN REGULAR 100 UNIT/ML SUBCUT SCH ×4 (07:45→21:34)
[2021-09-05] MEDS ORDERED: LACTATED RINGERS 1,000 ML IV SCH (08:30)
[2021-09-05] MEDS: ENOXAPARIN 40 MG/0.4 ML SYRINGE SUBCUT SCH (09:21)
[2021-09-05] MEDS: THEOPHYLLINE ER (24 HR) 300 MG CAPSULE PO SCH ×2 (09:27→21:59)
[2021-09-05] MEDS: hydrALAZINE 10 MG TABLET PO SCH ×3 (09:28→21:59)
[2021-09-05] MEDS: PANTOPRAZOLE 40 MG TABLET PO SCH (09:28)
[2021-09-05] MEDS: DILTIAZEM CD 300 MG CAPSULE PO SCH (09:28)
[2021-09-05] MEDS: METOPROLOL SUCCINATE XL 50 MG TABLET PO SCH (09:28)
[2021-09-05] MEDS: AZITHROMYCIN 250 MG TABLET PO SCH (09:28)
[2021-09-05] MEDS ORDERED: LACTULOSE 20 GM/30 ML UDCUP PO ONE (13:00)
[2021-09-05] MEDS: POLYETHYLENE GLYCOL POWDER 17 GM PACK PO SCH ×2 (13:32→21:58)
[2021-09-05] MEDS: DOCUSATE SODIUM 100 MG CAPSULE PO SCH ×2 (13:33→21:58)
[2021-09-05] MEDS: guaiFENesin/DM ER 600-30 MG TABLET PO SCH ×2 (13:33→22:00)
[2021-09-05] MEDS: BUDESONIDE 0.5 MG/2 ML NEB RESP TX SCH ×2 (13:51→19:49)
[2021-09-05] MEDS ORDERED: hydrALAZINE 10 MG TABLET PO SCH (15:00)
[2021-09-05] MEDS: BUDESONIDE/FORMOTEROL 160-4.5 INHALER 6 GM INH SCH (21:58)
[2021-09-05] MEDS: rOPINIRole 0.25 MG TABLET PO SCH (21:59)
[2021-09-05] MEDS: cefTRIAXone 1,000 MG in SODIUM CHLORIDE 0.9% 100 ML IV SCH (22:02)
[2021-09-06] MEDS: IPRATROPIUM 500 MCG/2.5 ML NEB RESP TX SCH ×4 (01:20→18:55)
[2021-09-06] MEDS: LEVALBUTEROL 1.25 MG/3 ML NEB RESP TX SCH ×4 (01:20→18:55)
[2021-09-06] MEDS: methylPREDNISolone SOD SUC 40 MG/1 ML VIAL IV SCH ×3 (01:45→21:41)
[2021-09-06] MEDS: BUDESONIDE 0.5 MG/2 ML NEB RESP TX SCH ×2 (07:23→19:05)
[2021-09-06 08:21] LABS: Eosinophils # 0.1 10*3/uL (0.0-0.87); Eosinophils % 1.7 % (0.00-10.9); Hemoglobin 11.6 GM/DL (12.0-16.0); Immature Granulocytes % 0.5 %; Immature Granulocytes Absolute 0.03 #; Lymphocytes # 1.5 10*3/uL (1.4-4.0); Lymphocytes % 23.1 % (21.3-54.2); Mean Corpuscular HGB Conc 32.2 GM/DL (32-36); Mean Corpuscular Volume 103.7 FL (87-102); Mean Platelet Volume 9.7 FL (9.6-12.0); Monocytes # 0.8 10*3/uL (0.11-0.8); Neutrophils % 62.7 % (38.7-73.9); Platelet Count 351 T/CUMM (130-400); Red Blood Count 3.47 MC/CUMM (3.8-5.5); Red Cell Distribution Width 14.4 % (9.3-17.3); White Blood Count 6.3 T/CUMM (4-12)
[2021-09-06 08:37] LABS: Calcium 8.5 MG/DL (8.5-10.1); Osmolality,Calculated 283.1 MOS/KG (273-304); Potassium 4.4 MMOL/L (3.5-5.1)
[2021-09-06] MEDS: POLYETHYLENE GLYCOL POWDER 17 GM PACK PO SCH ×2 (09:14→21:42)
[2021-09-06] MEDS: THEOPHYLLINE ER (24 HR) 300 MG CAPSULE PO SCH ×2 (09:15→21:41)
[2021-09-06] MEDS: DOCUSATE SODIUM 100 MG CAPSULE PO SCH ×2 (09:16→21:41)
[2021-09-06] MEDS: guaiFENesin/DM ER 600-30 MG TABLET PO SCH ×2 (09:16→21:41)
[2021-09-06] MEDS: DILTIAZEM CD 300 MG CAPSULE PO SCH (09:16)
[2021-09-06] MEDS: PANTOPRAZOLE 40 MG TABLET PO SCH (09:16)
[2021-09-06] MEDS: AZITHROMYCIN 250 MG TABLET PO SCH (09:17)
[2021-09-06] MEDS: hydrALAZINE 10 MG TABLET PO SCH ×2 (09:17→15:14)
[2021-09-06] MEDS: ENOXAPARIN 40 MG/0.4 ML SYRINGE SUBCUT SCH (09:18)
[2021-09-06] MEDS: BUDESONIDE/FORMOTEROL 160-4.5 INHALER 6 GM INH SCH ×2 (09:19→22:16)
[2021-09-06] MEDS: INSULIN REGULAR 100 UNIT/ML SUBCUT SCH ×4 (09:19→22:16)
[2021-09-06] MEDS ORDERED: VANCOMYCIN INJ 750 MG in SODIUM CHLORIDE 0.9% 250 ML IV SCH (14:30)
[2021-09-06] MEDS ORDERED: LEVOFLOXACIN INJ 500 MG/100 ML PREMIX IV SCH (17:00)
[2021-09-06] MEDS: rOPINIRole 0.25 MG TABLET PO SCH (21:41)
[2021-09-06] MEDS: DOXYCYCLINE HYCLATE 100 MG CAPSULE PO SCH (21:41)
[2021-09-06] MEDS: ONDANSETRON 4 MG/2 ML VIAL IV PRN (22:51)
[2021-09-06] MEDS: hydrALAZINE 20 MG/1 ML VIAL IV PRN (23:28)
[2021-09-07] MEDS: LEVALBUTEROL 1.25 MG/3 ML NEB RESP TX SCH ×4 (00:15→18:54)
[2021-09-07] MEDS: IPRATROPIUM 500 MCG/2.5 ML NEB RESP TX SCH ×4 (00:15→18:54)
[2021-09-07 06:46] LABS: Calcium 10.2 MG/DL (8.5-10.1); Osmolality,Calculated 288.4 MOS/KG (273-304)
[2021-09-07 07:12] LABS: Basophils % 0.1 % (0.0-0.8); Hematocrit 34.2 VOL% (35.7-47.0); Hemoglobin 10.8 GM/DL (12.0-16.0); Immature Granulocytes % 1.5 %; Immature Granulocytes Absolute 0.18 #; Lymphocytes # 0.3 10*3/uL (1.4-4.0); Lymphocytes % 2.5 % (21.3-54.2); Mean Corpuscular HGB Conc 31.6 GM/DL (32-36); Mean Corpuscular Volume 96.3 FL (87-102); Mean Platelet Volume 10.7 FL (9.6-12.0); Monocytes # 0.6 10*3/uL (0.11-0.8); Monocytes % 4.9 % (1.7-12.7); NRBC # 0.04 10*3/uL; Platelet Count 284 T/CUMM (130-400); Red Blood Count 3.55 MC/CUMM (3.8-5.5); Red Cell Distribution Width 13.7 % (9.3-17.3); White Blood Count 11.6 T/CUMM (4-12)
[2021-09-07] MEDS: BUDESONIDE 0.5 MG/2 ML NEB RESP TX SCH ×2 (07:25→18:54)
[2021-09-07 07:37] LABS: Anisocytosis 1+; Lymphocytes 2 % (20-55); Macrocytosis 1+; Nucleated Red Blood Cells 2 (0-5); Platelet Estimate Normal; Total Cells Counted 100
[2021-09-07] MEDS: THEOPHYLLINE ER (24 HR) 300 MG CAPSULE PO SCH ×2 (08:37→21:58)
[2021-09-07] MEDS: PANTOPRAZOLE 40 MG TABLET PO SCH (08:37)
[2021-09-07] MEDS: guaiFENesin/DM ER 600-30 MG TABLET PO SCH ×2 (08:37→22:31)
[2021-09-07] MEDS: DOCUSATE SODIUM 100 MG CAPSULE PO SCH ×2 (08:37→21:57)
[2021-09-07] MEDS: DOXYCYCLINE HYCLATE 100 MG CAPSULE PO SCH ×2 (08:37→21:59)
[2021-09-07] MEDS: POLYETHYLENE GLYCOL POWDER 17 GM PACK PO SCH ×2 (08:39→21:57)
[2021-09-07] MEDS: DILTIAZEM CD 300 MG CAPSULE PO SCH (08:39)
[2021-09-07] MEDS: ENOXAPARIN 40 MG/0.4 ML SYRINGE SUBCUT SCH (08:40)
[2021-09-07] MEDS: BUDESONIDE/FORMOTEROL 160-4.5 INHALER 6 GM INH SCH ×2 (08:41→21:58)
[2021-09-07] MEDS: methylPREDNISolone SOD SUC 40 MG/1 ML VIAL IV SCH ×2 (08:42→21:58)
[2021-09-07] MEDS: INSULIN REGULAR 100 UNIT/ML SUBCUT SCH ×4 (08:43→21:00)
[2021-09-07] MEDS: hydrALAZINE 20 MG/1 ML VIAL IV PRN ×2 (12:00→18:07)
[2021-09-07] MEDS ORDERED: MAGNESIUM CITRATE 300 ML BOTTLE PO ONE (14:02)
[2021-09-07] MEDS ORDERED: cloNIDine 0.1 MG TABLET PO SCH (14:30)
[2021-09-07] MEDS: rOPINIRole 0.25 MG TABLET PO SCH (21:57)
[2021-09-08] MEDS: LEVALBUTEROL 1.25 MG/3 ML NEB RESP TX SCH ×4 (00:04→19:05)
[2021-09-08] MEDS: IPRATROPIUM 500 MCG/2.5 ML NEB RESP TX SCH ×4 (00:04→19:05)
[2021-09-08] MEDS: hydrALAZINE 20 MG/1 ML VIAL IV PRN ×2 (00:30→06:33)
[2021-09-08] MEDS: MORPHINE 2 MG/1 ML SYRINGE IV PRN (04:28)
[2021-09-08] MEDS: BUDESONIDE 0.5 MG/2 ML NEB RESP TX SCH ×2 (07:15→19:05)
[2021-09-08] MEDS: ONDANSETRON 4 MG/2 ML VIAL IV PRN (08:28)
[2021-09-08] MEDS: POLYETHYLENE GLYCOL POWDER 17 GM PACK PO SCH ×2 (08:30→21:22)
[2021-09-08] MEDS: LINACLOTIDE 145 MCG CAPSULE PO SCH (08:30)
[2021-09-08] MEDS: methylPREDNISolone SOD SUC 40 MG/1 ML VIAL IV SCH ×2 (08:31→21:26)
[2021-09-08] MEDS: DOCUSATE SODIUM 100 MG CAPSULE PO SCH ×2 (08:32→21:22)
[2021-09-08] MEDS: ENOXAPARIN 40 MG/0.4 ML SYRINGE SUBCUT SCH (08:32)
[2021-09-08] MEDS: DILTIAZEM CD 300 MG CAPSULE PO SCH (08:32)
[2021-09-08] MEDS: PANTOPRAZOLE 40 MG TABLET PO SCH (08:33)
[2021-09-08] MEDS: BUDESONIDE/FORMOTEROL 160-4.5 INHALER 6 GM INH SCH ×2 (08:33→21:25)
[2021-09-08] MEDS: THEOPHYLLINE ER (24 HR) 300 MG CAPSULE PO SCH ×2 (08:33→21:22)
[2021-09-08] MEDS: guaiFENesin/DM ER 600-30 MG TABLET PO SCH ×2 (08:33→21:22)
[2021-09-08] MEDS: DOXYCYCLINE HYCLATE 100 MG CAPSULE PO SCH ×2 (08:34→21:22)
[2021-09-08 09:10] LABS: Calcium 10.3 MG/DL (8.5-10.1); Osmolality,Calculated 290.4 MOS/KG (273-304); Potassium 4.8 MMOL/L (3.5-5.1)
[2021-09-08] MEDS: INSULIN REGULAR 100 UNIT/ML SUBCUT SCH ×4 (09:16→21:54)
[2021-09-08] MEDS ORDERED: methylPREDNISolone 4 MG TABLET PO SCH (21:00)
[2021-09-08] MEDS: cloNIDine 0.1 MG TABLET PO SCH (21:21)
[2021-09-08] MEDS: rOPINIRole 0.25 MG TABLET PO SCH (21:22)
[2021-09-09] MEDS: LEVALBUTEROL 1.25 MG/3 ML NEB RESP TX SCH ×4 (00:06→19:10)
[2021-09-09] MEDS: IPRATROPIUM 500 MCG/2.5 ML NEB RESP TX SCH ×4 (00:06→19:10)
[2021-09-09] MEDS: hydrALAZINE 20 MG/1 ML VIAL IV PRN ×2 (01:01→12:29)
[2021-09-09] MEDS: MORPHINE 2 MG/1 ML SYRINGE IV PRN (03:39)
[2021-09-09 05:08] LABS: Basophils % 0.2 % (0.0-0.8); Hemoglobin 10.3 GM/DL (12.0-16.0); Immature Granulocytes % 2.2 %; Immature Granulocytes Absolute 0.23 #; Lymphocytes # 0.3 10*3/uL (1.4-4.0); Lymphocytes % 3.1 % (21.3-54.2); Mean Corpuscular HGB Conc 31.2 GM/DL (32-36); Mean Corpuscular Volume 97.6 FL (87-102); Mean Platelet Volume 10.8 FL (9.6-12.0); Monocytes # 0.3 10*3/uL (0.11-0.8); Monocytes % 2.7 % (1.7-12.7); NRBC # 0.04 10*3/uL; Neutrophils % 91.8 % (38.7-73.9); Platelet Count 261 T/CUMM (130-400); Red Blood Count 3.38 MC/CUMM (3.8-5.5); Red Cell Distribution Width 13.9 % (9.3-17.3); White Blood Count 10.6 T/CUMM (4-12)
[2021-09-09 05:22] LABS: Calcium 10.7 MG/DL (8.5-10.1); Osmolality,Calculated 285.5 MOS/KG (273-304); Potassium 4.7 MMOL/L (3.5-5.1)
[2021-09-09 05:31] LABS: Hypochromia Slight; Lymphocytes 3 % (20-55); Microcytosis Slight; Platelet Estimate Adequate; Total Cells Counted 100
[2021-09-09] MEDS: BUDESONIDE 0.5 MG/2 ML NEB RESP TX SCH ×2 (07:40→19:10)
[2021-09-09] MEDS: INSULIN REGULAR 100 UNIT/ML SUBCUT SCH ×4 (09:35→23:04)
[2021-09-09] MEDS: cloNIDine 0.1 MG TABLET PO SCH ×3 (09:39→22:58)
[2021-09-09] MEDS: DILTIAZEM CD 300 MG CAPSULE PO SCH (09:39)
[2021-09-09] MEDS: THEOPHYLLINE ER (24 HR) 300 MG CAPSULE PO SCH ×2 (09:40→22:57)
[2021-09-09] MEDS: PANTOPRAZOLE 40 MG TABLET PO SCH (12:24)
[2021-09-09] MEDS: DOCUSATE SODIUM 100 MG CAPSULE PO SCH ×2 (12:24→22:58)
[2021-09-09] MEDS: guaiFENesin/DM ER 600-30 MG TABLET PO SCH ×2 (12:24→22:57)
[2021-09-09] MEDS: LINACLOTIDE 145 MCG CAPSULE PO SCH (12:25)
[2021-09-09] MEDS: BUDESONIDE/FORMOTEROL 160-4.5 INHALER 6 GM INH SCH ×2 (12:27→22:58)
[2021-09-09] MEDS: POLYETHYLENE GLYCOL POWDER 17 GM PACK PO SCH ×2 (12:27→22:55)
[2021-09-09] MEDS: methylPREDNISolone SOD SUC 40 MG/1 ML VIAL IV SCH ×2 (12:28→22:55)
[2021-09-09] MEDS: DOXYCYCLINE HYCLATE 100 MG CAPSULE PO SCH ×2 (12:28→22:58)
[2021-09-09] MEDS: ENOXAPARIN 40 MG/0.4 ML SYRINGE SUBCUT SCH (12:35)
[2021-09-09] MEDS: hydroCHLOROthiazide 12.5 MG CAPSULE PO SCH (16:43)
[2021-09-09] MEDS: rOPINIRole 0.25 MG TABLET PO SCH (22:57)
[2021-09-10] MEDS: IPRATROPIUM 500 MCG/2.5 ML NEB RESP TX SCH ×4 (00:20→19:50)
[2021-09-10] MEDS: LEVALBUTEROL 1.25 MG/3 ML NEB RESP TX SCH ×4 (00:20→19:50)
[2021-09-10] MEDS: BUDESONIDE 0.5 MG/2 ML NEB RESP TX SCH ×2 (07:32→19:50)
[2021-09-10] MEDS: PANTOPRAZOLE 40 MG TABLET PO SCH (09:40)
[2021-09-10] MEDS: THEOPHYLLINE ER (24 HR) 300 MG CAPSULE PO SCH ×2 (09:40→23:00)
[2021-09-10] MEDS: DOCUSATE SODIUM 100 MG CAPSULE PO SCH ×2 (09:41→22:59)
[2021-09-10] MEDS: cloNIDine 0.1 MG TABLET PO SCH ×3 (09:41→22:59)
[2021-09-10] MEDS: DILTIAZEM CD 300 MG CAPSULE PO SCH (09:41)
[2021-09-10] MEDS: hydroCHLOROthiazide 12.5 MG CAPSULE PO SCH (09:41)
[2021-09-10] MEDS: DOXYCYCLINE HYCLATE 100 MG CAPSULE PO SCH ×2 (09:41→22:59)
[2021-09-10] MEDS: POLYETHYLENE GLYCOL POWDER 17 GM PACK PO SCH ×2 (09:42→23:08)
[2021-09-10] MEDS: INSULIN REGULAR 100 UNIT/ML SUBCUT SCH ×4 (09:42→23:07)
[2021-09-10] MEDS: ENOXAPARIN 40 MG/0.4 ML SYRINGE SUBCUT SCH (09:42)
[2021-09-10] MEDS: methylPREDNISolone SOD SUC 40 MG/1 ML VIAL IV SCH ×2 (09:45→16:01)
[2021-09-10] MEDS: BUDESONIDE/FORMOTEROL 160-4.5 INHALER 6 GM INH SCH ×2 (09:47→23:08)
[2021-09-10] MEDS: LINACLOTIDE 145 MCG CAPSULE PO SCH (09:47)
[2021-09-10] MEDS: guaiFENesin/DM ER 600-30 MG TABLET PO SCH ×2 (09:49→23:06)
[2021-09-10] MEDS: DORNASE ALFA 2.5 MG/2.5 ML VIAL RESP TX SCH ×2 (10:52→20:00)
[2021-09-10] MEDS: rOPINIRole 0.25 MG TABLET PO SCH (22:59)
[2021-09-11] MEDS: LEVALBUTEROL 1.25 MG/3 ML NEB RESP TX SCH ×4 (00:30→19:48)
[2021-09-11] MEDS: IPRATROPIUM 500 MCG/2.5 ML NEB RESP TX SCH ×2 (00:30→19:47)
[2021-09-11] MEDS: methylPREDNISolone SOD SUC 40 MG/1 ML VIAL IV SCH ×3 (01:13→17:13)
[2021-09-11] MEDS ORDERED: PROMETHAZINE 25 MG/1 ML VIAL IM ONE (07:00)
[2021-09-11] MEDS ORDERED: MEPERIDINE 50 MG/1 ML VIAL IM ONE (07:00)
[2021-09-11] MEDS: INSULIN REGULAR 100 UNIT/ML SUBCUT SCH ×4 (07:28→21:10)
[2021-09-11] MEDS ORDERED: MIDAZOLAM 2 MG/2 ML VIAL IV ONE (07:30)
[2021-09-11] MEDS ORDERED: LIDOCAINE 2% 20 ML VIAL RESP TX ONE (07:30)
[2021-09-11] MEDS ORDERED: LIDOCAINE 2% VISCOUS 100 ML BOTTLE SWISH/SPIT ONE (07:30)
[2021-09-11] MEDS ORDERED: LIDOCAINE 1% 20 ML VIAL MISC INJ ONE (07:30)
[2021-09-11] MEDS: LINACLOTIDE 145 MCG CAPSULE PO SCH (08:06)
[2021-09-11] MEDS: DORNASE ALFA 2.5 MG/2.5 ML VIAL RESP TX SCH ×3 (08:30→19:48)
[2021-09-11] MEDS: BUDESONIDE 0.5 MG/2 ML NEB RESP TX SCH ×2 (08:31→13:09)
[2021-09-11] MEDS: cloNIDine 0.1 MG TABLET PO SCH ×3 (10:19→21:09)
[2021-09-11] MEDS: DOXYCYCLINE HYCLATE 100 MG CAPSULE PO SCH ×2 (10:19→21:08)
[2021-09-11] MEDS: guaiFENesin/DM ER 600-30 MG TABLET PO SCH ×2 (10:19→21:09)
[2021-09-11] MEDS: THEOPHYLLINE ER (24 HR) 300 MG CAPSULE PO SCH ×2 (10:19→21:09)
[2021-09-11] MEDS: DOCUSATE SODIUM 100 MG CAPSULE PO SCH ×2 (10:20→21:09)
[2021-09-11] MEDS: hydroCHLOROthiazide 12.5 MG CAPSULE PO SCH (10:20)
[2021-09-11] MEDS: DILTIAZEM CD 300 MG CAPSULE PO SCH (10:20)
[2021-09-11] MEDS: PANTOPRAZOLE 40 MG TABLET PO SCH (10:20)
[2021-09-11] MEDS: ENOXAPARIN 40 MG/0.4 ML SYRINGE SUBCUT SCH (10:21)
[2021-09-11] MEDS: BUDESONIDE/FORMOTEROL 160-4.5 INHALER 6 GM INH SCH ×2 (10:23→21:10)
[2021-09-11] MEDS: POLYETHYLENE GLYCOL POWDER 17 GM PACK PO SCH ×2 (10:24→21:10)
[2021-09-11] MEDS: rOPINIRole 0.25 MG TABLET PO SCH (21:09)
[2021-09-12] MEDS: methylPREDNISolone SOD SUC 40 MG/1 ML VIAL IV SCH ×3 (00:39→21:28)
[2021-09-12] MEDS: LEVALBUTEROL 1.25 MG/3 ML NEB RESP TX SCH ×4 (00:49→19:30)
[2021-09-12] MEDS: IPRATROPIUM 500 MCG/2.5 ML NEB RESP TX SCH ×5 (00:49→19:30)
[2021-09-12] MEDS: BUDESONIDE 0.5 MG/2 ML NEB RESP TX SCH ×2 (09:13→19:30)
[2021-09-12] MEDS: DORNASE ALFA 2.5 MG/2.5 ML VIAL RESP TX SCH ×2 (09:13→19:45)
[2021-09-12] MEDS: ENOXAPARIN 40 MG/0.4 ML SYRINGE SUBCUT SCH (09:39)
[2021-09-12] MEDS: hydroCHLOROthiazide 12.5 MG CAPSULE PO SCH (09:40)
[2021-09-12] MEDS: cloNIDine 0.1 MG TABLET PO SCH ×3 (09:41→21:29)
[2021-09-12] MEDS: DOXYCYCLINE HYCLATE 100 MG CAPSULE PO SCH ×2 (09:42→21:29)
[2021-09-12] MEDS: POLYETHYLENE GLYCOL POWDER 17 GM PACK PO SCH ×2 (09:43→21:28)
[2021-09-12] MEDS: guaiFENesin/DM ER 600-30 MG TABLET PO SCH ×2 (09:43→21:28)
[2021-09-12] MEDS: DILTIAZEM CD 300 MG CAPSULE PO SCH (09:44)
[2021-09-12] MEDS: DOCUSATE SODIUM 100 MG CAPSULE PO SCH ×2 (09:47→21:28)
[2021-09-12] MEDS: PANTOPRAZOLE 40 MG TABLET PO SCH (09:47)
[2021-09-12] MEDS: BUDESONIDE/FORMOTEROL 160-4.5 INHALER 6 GM INH SCH ×2 (09:49→21:29)
[2021-09-12] MEDS ORDERED: MECLIZINE 12.5 MG TABLET PO PRN (10:07)
[2021-09-12] MEDS: LINACLOTIDE 145 MCG CAPSULE PO SCH (10:26)
[2021-09-12] MEDS: INSULIN REGULAR 100 UNIT/ML SUBCUT SCH ×4 (10:27→21:29)
[2021-09-12] MEDS: THEOPHYLLINE ER (24 HR) 300 MG CAPSULE PO SCH ×2 (10:27→21:33)
[2021-09-12] MEDS: rOPINIRole 0.25 MG TABLET PO SCH (21:29)
[2021-09-13] MEDS: IPRATROPIUM 500 MCG/2.5 ML NEB RESP TX SCH ×4 (00:33→19:18)
[2021-09-13] MEDS: LEVALBUTEROL 1.25 MG/3 ML NEB RESP TX SCH ×4 (00:33→19:18)
[2021-09-13] MEDS: BUDESONIDE 0.5 MG/2 ML NEB RESP TX SCH ×2 (07:00→19:18)
[2021-09-13] MEDS: DORNASE ALFA 2.5 MG/2.5 ML VIAL RESP TX SCH ×2 (07:22→19:12)
[2021-09-13] MEDS: INSULIN REGULAR 100 UNIT/ML SUBCUT SCH ×4 (09:44→21:29)
[2021-09-13] MEDS: LINACLOTIDE 145 MCG CAPSULE PO SCH (09:46)
[2021-09-13] MEDS: guaiFENesin/DM ER 600-30 MG TABLET PO SCH ×2 (09:46→21:28)
[2021-09-13] MEDS: THEOPHYLLINE ER (24 HR) 300 MG CAPSULE PO SCH ×2 (09:46→21:28)
[2021-09-13] MEDS: DILTIAZEM CD 300 MG CAPSULE PO SCH (09:47)
[2021-09-13] MEDS: cloNIDine 0.1 MG TABLET PO SCH ×3 (09:47→21:28)
[2021-09-13] MEDS: DOXYCYCLINE HYCLATE 100 MG CAPSULE PO SCH ×2 (09:47→21:28)
[2021-09-13] MEDS: PANTOPRAZOLE 40 MG TABLET PO SCH (09:47)
[2021-09-13] MEDS: ENOXAPARIN 40 MG/0.4 ML SYRINGE SUBCUT SCH (09:48)
[2021-09-13] MEDS: POLYETHYLENE GLYCOL POWDER 17 GM PACK PO SCH ×2 (09:48→21:29)
[2021-09-13] MEDS: DOCUSATE SODIUM 100 MG CAPSULE PO SCH ×2 (09:48→21:28)
[2021-09-13] MEDS: hydroCHLOROthiazide 12.5 MG CAPSULE PO SCH (09:48)
[2021-09-13] MEDS: BUDESONIDE/FORMOTEROL 160-4.5 INHALER 6 GM INH SCH ×2 (09:50→21:29)
[2021-09-13] MEDS: methylPREDNISolone SOD SUC 40 MG/1 ML VIAL IV SCH ×2 (10:51→21:28)
[2021-09-13] MEDS: rOPINIRole 0.25 MG TABLET PO SCH (21:28)
[2021-09-14] MEDS: IPRATROPIUM 500 MCG/2.5 ML NEB RESP TX SCH ×4 (01:30→19:35)
[2021-09-14] MEDS: LEVALBUTEROL 1.25 MG/3 ML NEB RESP TX SCH ×4 (01:30→19:35)
[2021-09-14] MEDS: DORNASE ALFA 2.5 MG/2.5 ML VIAL RESP TX SCH ×2 (07:04→19:35)
[2021-09-14] MEDS: BUDESONIDE 0.5 MG/2 ML NEB RESP TX SCH ×2 (07:04→19:35)
[2021-09-14] MEDS: INSULIN REGULAR 100 UNIT/ML SUBCUT SCH ×4 (08:00→21:59)
[2021-09-14] MEDS: ENOXAPARIN 40 MG/0.4 ML SYRINGE SUBCUT SCH (08:53)
[2021-09-14] MEDS: methylPREDNISolone SOD SUC 40 MG/1 ML VIAL IV SCH (08:55)
[2021-09-14] MEDS: LINACLOTIDE 145 MCG CAPSULE PO SCH (08:56)
[2021-09-14] MEDS: DOCUSATE SODIUM 100 MG CAPSULE PO SCH ×2 (08:56→21:06)
[2021-09-14] MEDS: guaiFENesin/DM ER 600-30 MG TABLET PO SCH ×2 (08:56→21:06)
[2021-09-14] MEDS: hydroCHLOROthiazide 12.5 MG CAPSULE PO SCH (08:57)
[2021-09-14] MEDS: THEOPHYLLINE ER (24 HR) 300 MG CAPSULE PO SCH ×2 (08:57→21:06)
[2021-09-14] MEDS: PANTOPRAZOLE 40 MG TABLET PO SCH (08:57)
[2021-09-14] MEDS: cloNIDine 0.1 MG TABLET PO SCH ×3 (08:57→21:06)
[2021-09-14] MEDS: BUDESONIDE/FORMOTEROL 160-4.5 INHALER 6 GM INH SCH ×2 (08:59→21:07)
[2021-09-14] MEDS: DILTIAZEM CD 300 MG CAPSULE PO SCH (09:48)
[2021-09-14] MEDS: POLYETHYLENE GLYCOL POWDER 17 GM PACK PO SCH ×2 (09:49→21:59)
[2021-09-14] MEDS: hydrALAZINE 20 MG/1 ML VIAL IV PRN (12:51)
[2021-09-14] MEDS: rOPINIRole 0.25 MG TABLET PO SCH (21:06)
[2021-09-15] MEDS: IPRATROPIUM 500 MCG/2.5 ML NEB RESP TX SCH ×3 (01:43→07:17)
[2021-09-15] MEDS: LEVALBUTEROL 1.25 MG/3 ML NEB RESP TX SCH ×3 (01:44→07:17)
[2021-09-15 06:00] LABS: Calcium 10.1 MG/DL (8.5-10.1); Osmolality,Calculated 271.1 MOS/KG (273-304); Potassium 3.4 MMOL/L (3.5-5.1)
[2021-09-15] MEDS: BUDESONIDE 0.5 MG/2 ML NEB RESP TX SCH (07:17)
[2021-09-15] MEDS: DORNASE ALFA 2.5 MG/2.5 ML VIAL RESP TX SCH (07:30)
[2021-09-15] MEDS: INSULIN REGULAR 100 UNIT/ML SUBCUT SCH ×2 (08:04→11:45)
[2021-09-15] MEDS ORDERED: methylPREDNISolone SOD SUC 40 MG/1 ML VIAL IV SCH (09:00)
[2021-09-15] MEDS: LINACLOTIDE 145 MCG CAPSULE PO SCH (09:09)
[2021-09-15] MEDS: DILTIAZEM CD 300 MG CAPSULE PO SCH (09:09)
[2021-09-15] MEDS: guaiFENesin/DM ER 600-30 MG TABLET PO SCH (09:10)
[2021-09-15] MEDS: THEOPHYLLINE ER (24 HR) 300 MG CAPSULE PO SCH (09:10)
[2021-09-15] MEDS: cloNIDine 0.1 MG TABLET PO SCH (09:10)
[2021-09-15] MEDS: hydroCHLOROthiazide 12.5 MG CAPSULE PO SCH (09:10)
[2021-09-15] MEDS: DOCUSATE SODIUM 100 MG CAPSULE PO SCH (09:11)
[2021-09-15] MEDS: POLYETHYLENE GLYCOL POWDER 17 GM PACK PO SCH (09:11)
[2021-09-15] MEDS: PANTOPRAZOLE 40 MG TABLET PO SCH (09:11)
[2021-09-15] MEDS: ENOXAPARIN 40 MG/0.4 ML SYRINGE SUBCUT SCH (09:12)
[2021-09-15] MEDS: ONDANSETRON 4 MG/2 ML VIAL IV PRN (09:25)
[2021-09-15] MEDS: BUDESONIDE/FORMOTEROL 160-4.5 INHALER 6 GM INH SCH (09:27)
[2021-09-15] MEDS ORDERED: POTASSIUM CHLORIDE 20 MEQ TABLET PO ONE (11:32)
[2021-09-15 12:19] VITALS: BP 162/82
== END 2021-09-15 12:37 | disposition home or self-care (01) | DRG 190 ==
LOC: N.EDINP 17:23 → N.ED 17:23 → SUATTDRO 21:11 → N.5E 09-03 13:12
PROVIDERS: ADMIT Hospitalist; ATTEND Internal Medicine